=== PATIENT | male | born 1935 ===

== ENCOUNTER 2017-03-22 11:50 | Inpatient (IN) | payer OTHER, MEDICARE ==
[~2017-03-22] VITALS: Ht 180.3 cm; Wt 74.8 kg
--- NOTE | 2017-03-22 11:51 | NUR ---
UNABLE TO OBTAIN RECTAL TEMP.. RECTAL THEREMOMETER WOULD NOT GENERAL OFFICE ASSISTANT TEMP. TYMPANIC TEMP OF 86.3
--- NOTE | 2017-03-22 12:10 | ED AMS/SEIZURE/WEAK/DIZZY ---
History of Present Illness General Chief Complaint: Altered Mental Status Stated Complaint: BIBA AMS Vital Signs & Intake/Output Vital Signs & Intake/Output Vital Signs Date Time Temp Pulse Resp B/P B/P Pulse O2 O2 Flow FiO2 Mean Ox Delivery Rate 03/22 1151 53 18 141/67 96 Allergies Coded Allergies: NO KNOWN ALLERGIES (06/07/12) (FRAN PALACIOS MD) Past History Medical History History of MRSA: No History of VRE: No History of CDIFF: No Psychosocial History Who do you live with Patient/Self Services at Home Nursing What is your primary language Citizen Of [place] (FRAN PALACIOS MD) Progress Plan of Care: Orders Procedure Date/time Status EKG 03/22 1151 Active Departure Departure Condition: Stable Referrals: CHECO HAYS MD (PCP/Family) Departure Forms: Customer Survey General Discharge Information (FRAN PALACIOS MD)
--- NOTE | 2017-03-22 12:18 | NUR ---
81 YEAR OLD MALE BIBA FROM [facility] WITH REPORT OF AMS. PT ARRIVES TO ED ALERT, ORIENTED TO PERSON. PT FEELS COOL TO TOUCH, UNABLE TO OBTAIN RECTAL TEMP AT TWO DIFFERENT ATTEMPTS. TEMPORAL TEMPERATURE READ 86.2 DR. EVANGELISTA TO BEDSIDE FOR EVAL. PT PLACED ON CM NOTED TO SINUS MARTITA IN THE 50'S WITH EPISODES OF HEART RATE DROPPING IN THE 30'S AND 40'S UNSUSTAINED. EKG COMPLETED, PT PLACED ON BEAR HUGGER, AND IV ESTABLISHED AT THIS TIME. NURSING WILL CONTINUE TO MONITOR.
--- NOTE | 2017-03-22 12:18 | ED GENERAL ADULT ---
History of Present Illness General Chief Complaint: Altered Mental Status Stated Complaint: BIBA AMS Source: EMS, W10 Exam Limitations: clinical condition, confusion, dementia, physical impairment Vital Signs & Intake/Output Vital Signs & Intake/Output Vital Signs Date Time Temp Pulse Resp B/P B/P Pulse O2 O2 Flow FiO2 Mean Ox Delivery Rate 03/228 95.0 81 18 95/51 95 Room Air Room Air 03/22 2018 94.1 71 18 92/53 96 Room Air Room Air / 1910 93.0 65 18 81/53 95 Room Air Room Air /08 1834 92.3 62 18 83/51 96 Room Air Room Air /08 1801 91.3 61 18 83/54 95 Room Air Room Air /08 1721 91.2 61 18 78/50 95 Room Air Room Air /08 1601 90.3 55 18 98/55 96 Room Air Room Air /08 1539 90.1 47 18 78/49 94 Room Air /08 1436 89.7 48 18 102/64 96 Room Air Room Air /08 1341 87.8 52 20 115/71 98 Room Air 06/08 1151 86.3 53 18 141/67 96 Room Air Allergies Coded Allergies: NO KNOWN ALLERGIES (03/22/17) Reconcile Medications Acetaminophen (Acephen) 650 MG SUPP.RECT 1 SUPP VA Q4H PRN PAIN/TEMP>/100 ( Reported) Acetaminophen 325 MG TABLET 2 TAB PO Q4H PRN PAIN/TEMP>/100 (Reported) Ascorbate Calcium (Vitamin C) 500 MG TABLET 1 TAB PO BID SUPPLEMENT (Reported ) Bisacodyl 10 MG SUPP.RECT 1 SUP RC PRN CONSTIPATION (Reported) Calcium Carbonate (Calcium) 500 MG CALCIUM (1,250 MG) TAB.CHEW 1 TAB PO BID GI (Reported) Carbidopa/Levodopa (Sinemet 25-100 MG Tablet) 25 MG-100 MG TABLET 2 TAB PO TID UNKNOWN (Reported) Chlorhexidine Gluconate (Periogard) 0.12 % MOUTHWASH 15 ML PO BID TEETH & GUMS (Reported) Cranberry Fruit Concentrate (Azo Cranberry) 250 MG TAB.CHEW 2 TAB PO DAILY SUPPLEMENT (Reported) Divalproex Sodium (Depakote) 125 MG TABLET.DR 500 MG PO BID UNKNOWN (Reported ) Divalproex Sodium (Depakote) 125 MG TABLET.DR 625 MG PO 1300 UNKNOWN ( Reported) Docusate Sodium (DOK) 100 MG TABLET 2 TAB PO DAILY GI (Reported) Ergocalciferol (Vitamin D2) (Vitamin D2) 50,000 UNIT CAPSULE 1 CAP PO Q30D SUPPLEMENT (Reported) Finasteride 5 MG TABLET 1 TAB PO 1700 BPH (Reported) Folic Acid 0.8 MG TABLET 1 TAB PO DAILY SUPPLEMENT (Reported) Furosemide (Lasix) 20 MG TABLET 1 TAB PO 4XW DIURETIC (Reported) Furosemide (Lasix) 40 MG TABLET 1 TAB PO Sunday DIURETIC (Reported ) Guaifenesin 100 MG/5 ML LIQUID 10 ML PO Q6H PRN COUGH (Reported) Lactose-Reduced Food (Nutritional Supplement) 237 ML LIQUID 120 ML PO BID SUPPLEMENT (Reported) Levothyroxine Sodium 125 MCG TABLET 1 TAB PO DAILY THYROID (Reported) Lubiprostone (Amitiza) 24 MCG CAPSULE 1 CAP PO BID GI (Reported) Magnesium Hydroxide (Milk Of Magnesia) 400 MG/5 ML ORAL.SUSP 30 ML PO DAILY PRN CONSTIPATION (Reported) Midodrine HCl 5 MG TABLET 1 TAB PO BID UNKNOWN (Reported) Midodrine HCl 2.5 MG TABLET 1 TAB PO BID UNKNOWN (Reported) Multivitamin,Ther and Minerals (Multivitamins With Minerals Hp) 1 EACH CAPSULE 1 CAP PO DAILY SUPPLEMENT (Reported) Na Phos,M-B/Na Phos,Di-Ba (Fleet Enema) 19 GRAM-7 GRAM/118 ML ENEMA 1 E RC DAILY PRN CONSTIPATION (Reported) Omeprazole 20 MG CAPSULE.DR 1 CAP PO DAILY GI (Reported) Polyethylene Glycol 3350 (Miralax) 17 GRAM POWD.PACK 1 PAC PO 1700 GI ( Reported) dissolve in water [POWER CEREAL] 1 UNIT PO QAM SUPPLEMENT (Reported) Protein Supplement (Promod) 946 ML LIQUID 30 ML PO DAILY SUPPLEMENT (Reported ) Quetiapine Fumarate 100 MG TABLET 1 TAB PO QAM UNKNOWN (Reported) Quetiapine Fumarate 25 MG TABLET 1 TAB PO QAM UNKNOWN (Reported) Quetiapine Fumarate 25 MG TABLET 1 TAB PO 1400 UNKNOWN (Reported) Quetiapine Fumarate (Seroquel) 100 MG TABLET 1 TAB PO QHS UNKNOWN (Reported) Saliva Stimulant Agents Comb.3 (Biotene Moisturizing Mouth) 44.3 ML SPRAY 2 SPRAY PO BID DRY MOUTH (Reported) Sennosides/Docusate Sodium (Senna S Tablet) 8.6 MG-50 MG TABLET 1 TAB PO 1700 GI (Reported) Simvastatin (Zocor*) 20 MG TABLET 1 TAB PO QHS CHOLESTEROL (Reported) Spironolactone 25 MG TABLET 12.5 MG PO DAILY DIURETIC (Reported) Tamsulosin HCl (Flomax) 0.4 MG CAP.ER.24H 1 CAP PO DAILY (Reported) Trazodone HCl 150 MG TABLET 0.5 TAB PO QHS UNKNOWN (Reported) Triage Nurses Notes Reviewed? yes Onset: Abrupt Duration: unknown duration Timing: unknown HPI: 03/22/17 12:37 81-year-old man [facility] from the prison for altered mental status and hypothermia. The patient has a history of dementia and Parkinson's disease. He is currently DNR/DNI and do not hospitalize according to the prison paperwork. I did confirm this with the prison staff. The medical housekeeper at the facility requested the patient be evaluated. The onset of the symptoms were abrupt, the duration is unclear, the severity is significant as his symptoms required him to come to the emergency department for care. Past History Medical History Any Pertinent Medical History? see below for history Neurological: Alzheimer's disease, Parkinson's disease, seizure History of MRSA: No History of VRE: No History of CDIFF: No Surgical History Surgical History: non-contributory Psychosocial History Who do you live with Patient/Self Services at Home Nursing What is your primary language [place] Family History Hx Contributory? No Review of Systems Review of Systems Constitutional: Denies: fever. EENTM: Reports: no symptoms. Respiratory: Denies: short of breath. Cardiovascular: Denies: chest pain. GI: Denies: abdominal pain. Genitourinary: Reports: no symptoms. Musculoskeletal: Reports: no symptoms. Skin: Denies: rash. Neurological/Psychological: Reports: confusion. Hematologic/Endocrine: Denies: bruising, bleeding. Physical Exam Physical Exam General Appearance: awake, severe distress Head: atraumatic Eyes: Bilateral: PERRL. Ears, Nose, Throat: dry mucous membranes Neck: normal inspection, supple Respiratory: normal breath sounds, chest non-tender, no respiratory distress Cardiovascular: regular rate/rhythm Peripheral Pulses: 2+ radial (R), 2+ radial (L) Gastrointestinal: non-tender Back: decreased range of motion Extremities: pedal edema Neurologic/Psych: no motor/sensory deficits (confused, nonfocal) Skin: pallor Core Measures ACS in differential dx? No CVA/TIA Diagnosis: No Severe Sepsis Present: No Septic Shock Present: No Progress Differential Diagnoses I considered the following diagnoses in my evaluation of the patient: [Sepsis, adrenal insufficiency, hypothyroidism, adverse drug reaction, anemia, electrolyte derangement] Plan of Care: Orders Procedure Date/time Status Patient Data 03/22 2001 Active Add-on Test (ER Only) 03/[address] in observation 03/22 195 Active LACTIC ACID 03/22 1525 Complete THYROID STIMULATING HORMONE 03/22 1230 Active TROPONIN LEVEL 03/22 1230 Active THYROXINE 03/22 1230 Active LACTIC ACID 03/22 1230 Active FREE T4 03/22 1230 Active Germain, Insertion/Removal/Asses 03/22 1225 Active CULTURE,URINE 03/22 1225 Active BLOOD CULTURE 03/22 1225 Active URINALYSIS 03/22 1225 Complete ED- NURSING MISC 03/22 1220 Active COMPREHENSIVE METABOLIC PANEL 03/22 1220 Active CBC WITHOUT DIFFERENTIAL 03/22 1220 Complete EKG 03/22 1151 Active Current Medications Sig/Sofie Start time Last Medication Dose Stop Time Status Admin Finasteride 5 MG 1700 03/23 1700 UNVr (Proscar) Ceftazidime 2,000 MG IQ8 03/23 0400 UNVr (Fortaz) Chlorhexidine 15 ML BID 03/22 2200 UNVr Gluconate (Peridex 0.12% Oral Rinse) Divalproex Sodium 500 MG BID 03/22 2200 UNVr (Depakote ER) Divalproex Sodium 625 MG .[1300 DAILY] 03/22 2115 UNVr (Depakote) Ceftazidime 1,000 MG ONCE ONE 03/22 2100 UNVr 03/22 (Fortaz) 03/22 2101 2106 Vancomycin HCl 1,000 MG ONCE ONE 03/22 2030 AC 03/22 Sodium Chloride 250 ML 03/22 (Normal Saline 0.9%) Laboratory Tests 03/22/17 1530: Lactic Acid 1.4 03/22/17 1406: Urine Color YEL, Urine Clarity CLEAR, Urine pH 6.0, Ur Specific [place] 1.015, Urine Protein NEG, Urine Ketones NEG, Urine Nitrite NEG, Urine Bilirubin NEG, Urine Urobilinogen 0.2, Ur Leukocyte Esterase NEG, Ur Microscopic EXAM NOT REQUIRED, Urine Hemoglobin NEG, Urine Glucose NEG 03/22/17 1230: Anion Gap 11, Estimated GFR > 60, BUN/Creatinine Ratio 47.8 H, Glucose 88, Lactic Acid 2.7 H, Calcium 9.5, Total Bilirubin 0.4, AST 28, ALT 11 L, Alkaline Phosphatase 74, Troponin I 0.04, Total Protein 6.6, Albumin 3.2 L, Globulin 3.4, Albumin/Globulin Ratio 0.9 L, TSH 8.090 H, Free T4 1.36, Thyroxine (T4) Pending, CBC w Diff NO MAN DIFF REQ, RBC 3.96 L, MCV 95.3 H, MCH 31.4 H, RDW 17.5 H, MPV 7.4, Gran % 46.5, Lymphocytes % 42.9, Monocytes % 8.4, Eosinophils % 1.6, Basophils % 0.6, Absolute Granulocytes 1.3 L, Absolute Lymphocytes 1.2, Absolute Monocytes 0.2, Absolute Eosinophils 0, Absolute Basophils 0, PUBS MCHC 33.0 03/22/17 1225: Lactic Acid Cancelled, Troponin I Cancelled, TSH Cancelled, Free T4 Cancelled Microbiology 03/22 1530 BLOOD: Blood Culture - RECD 03/22 1406 URINE ROUT: Urine Culture - RECD 03/22 1230 BLOOD: Blood Culture - RECD CXR Impression: lower lobe opacifications rule out infiltrate Initial ED EKG: right bundle-branch block, bradycardia Prior EKG: unchanged Departure Departure Disposition: STILL A PATIENT Condition: Stable Clinical Impression Primary Impression: Hypothermia Secondary Impressions: Hypotension, Sepsis Referrals: CHECO HAYS MD (PCP/Family) Departure Forms: Customer Survey General Discharge Information Comments 03/22/17 7:34 PM The patient hasn't established DNR DNI and do not hospitalize order from the prison. I spoke at length with the patient's family and power of associate attorney ,his brother. He would like the patient's wishes honored for no aggressive measures. He did for was placed in observation in the ICU, his care will include IV fluids, and IV antibiotics. No intubation no CPR. No vasopressors. No invasive IV lines. Observation Note Spoke With: FLORENCIO PAYNE,[facility] Physician Advisor Notified: MYLENE PAYNE,[facility] Patient In: Non-ED OBS Care Area Rationale for Observation: My rational for observation is as follows [he needs IV fluids, IV antibiotics, external rewarming. We will see if he responds to these therapies; if he does not respond, the family would prefer hospice therapy]. Critical Care Note Critical Care Note Critical Care Time: 30-74 min
[2017-03-22 12:45] LABS: ABSOLUTE BASOPHIL COUNT 0 /CUMM (0.0-0.2); ABSOLUTE EOSINOPHIL COUNT 0 /CUMM (0.0-0.7); ABSOLUTE GRANULOCYTE CT 1.3 /CUMM (1.4-6.5); ABSOLUTE LYMPH COUNT 1.2 /CUMM (1.2-3.4); ABSOLUTE MONOCYTE COUNT 0.2 /CUMM (0.10-0.60); BASOPHIL % 0.6 % (0.0-2.0); EOSINOPHIL % 1.6 % (0-5); GRANULOCYTE % 46.5 % (42.2-75.2); HEMATOCRIT 37.7 % (42-52); MEAN CORPUSCULAR HGB 31.4 PG (27.0-31.0); MEAN CORPUSCULAR VOLUME 95.3 FL (80.0-94.0); MEAN PLATELET VOLUME 7.4 FL (7.4-10.4); PLATELET COUNT 171 /CUMM (130-400); RBC DISTRIBUTION WIDTH 17.5 % (11.5-14.5); RED BLOOD CELL CT 3.96 /CUMM (4.70-6.10); WHITE BLOOD CELL COUNT 2.8 /CUMM (4.8-10.8)
--- NOTE | 2017-03-22 12:56 | NUR ---
PT TO CAT SCAN AT THIS TIME.
--- NOTE | 2017-03-22 13:19 | RADIOLOGY REPORT ---
EXAMINATION: XR PORTABLE CHEST CLINICAL INFORMATION: Altered mental status. Assess for pneumonia. COMPARISON: Chest radiography 09/09/2013. TECHNIQUE: Portable frontal view of the chest was obtained. FINDINGS: There is bibasilar opacification. No pulmonary edema, large pleural effusion, or pneumothorax. No mediastinal widening. No acute osseous abnormalities. IMPRESSION: Bibasilar opacification, consider atelectasis, aspiration, or pneumonia.
--- NOTE | 2017-03-22 13:24 | NUR ---
CRITICAL TEST RESULTS [id number] MARY ANNE FLYNN 81 Priti TESTS AND RESULTS: LACTIC ACID 2.7 Results received and read back by: JENNA BORGES Results received date and time: 03/22/17 1324 The following provider was notified of the results, and read the results back: DR EVANGELISTA Notified date and time: 03/22/17 at 1324
--- NOTE | 2017-03-22 13:24 | CT SCAN REPORT ---
EXAMINATION: CT HEAD WITHOUT CONTRAST CLINICAL INFORMATION: Altered mental status. COMPARISON: CT head 06/25/2013. TECHNIQUE: Contiguous axial imaging was performed from the skull base to vertex without intravenous administration of contrast. DLP: 616.71 mGy-cm FINDINGS: There is no acute intracranial hemorrhage or abnormal extra-axial collection. No intracranial mass effect or midline shift. Lateral and third ventricles are proportionate to the subarachnoid spaces and there is no hydrocephalus. 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 Bansal-white matter differentiation is otherwise grossly preserved and there is no evidence of acute territorial infarct. The calvarium and skull base are intact. Mastoid air cells and middle ear cavities are well aerated. Visualized paranasal sinuses are well-aerated. 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 There is global parenchymal volume loss. No evidence of acute territorial infarct or hemorrhage.
--- NOTE | 2017-03-22 15:37 | NUR ---
SECOND SET OF B/C AND REPEAT LACTIC SENT AT THIS TIME.
--- NOTE | 2017-03-22 16:00 | NUR ---
NS BOLUS #[address] EVANGELISTA FOR HYPOTENSION. PT CONTINUES TO REMAIN ALTERED MUMBLING THE WHAT SOUNDS TO BE THE SAME UNINTELLIGABLE SENTENCE. PT CONTINUES ON BEAR HUGGER WITH IMPROVEMENT. BARGER CATHETER DRAINING CLEAR YELOOW URINE.
[2017-03-22] MEDS ORDERED: [UNRECOGNIZED DRUG - OTHER] PO (17:29)
[2017-03-22] MEDS ORDERED: NUTRITIONAL SU237 ML PO (17:30)
[2017-03-22] MEDS ORDERED: OMEPRAZOLE20 M2 PO (17:30)
[2017-03-22] MEDS ORDERED: LEVOTHYROXINE125 MCG PO (17:31)
[2017-03-22] MEDS ORDERED: LASIX40 M1 PO (17:32)
[2017-03-22] MEDS ORDERED: LASIX20 M1 PO (17:32)
[2017-03-22] MEDS ORDERED: DOK100 M3 PO (17:44)
[2017-03-22] MEDS ORDERED: SINEMET 25-1001 EACH PO (17:44)
[2017-03-22] MEDS ORDERED: AZO CRANBERRY250 MG PO (17:45)
[2017-03-22] MEDS ORDERED: MULTIVITAMINS1 EAC3 PO (17:45)
[2017-03-22] MEDS ORDERED: SPIRONOLACTONE25 M1 PO (17:46)
[2017-03-22] MEDS ORDERED: VITAMIN D250000 UNIT PO (17:46)
[2017-03-22] MEDS ORDERED: FOLIC ACID0.8 M2 PO (17:46)
[2017-03-22] MEDS ORDERED: QUETIAPINE FUMA25 M1 PO ×2 (17:48→18:06)
[2017-03-22] MEDS ORDERED: QUETIAPINE FUM100 M1 PO (17:48)
[2017-03-22] MEDS ORDERED: PERIOGARD473 ML PO (17:49)
[2017-03-22] MEDS ORDERED: [UNRECOGNIZED DRUG - OTHER] PO (17:49)
[2017-03-22] MEDS ORDERED: MIDODRINE HCL5 M1 PO (17:50)
[2017-03-22] MEDS ORDERED: AMITIZA24 MC1 PO (17:51)
[2017-03-22] MEDS ORDERED: CALCIUM500 M2 PO (17:51)
[2017-03-22] MEDS ORDERED: MIDODRINE HCL2.5 M1 PO (17:52)
--- NOTE | 2017-03-22 18:00 | NUR ---
THIRD NS BOLUS FINISHED AT THIS TIME WITH LITTE IMPROVEMENT WITH HYPOTENSION. PT POA AND BROTHER IS AT THE BEDSIDE WITH FAMILY. DR. EVANGELISTA TO BEDSIDE TO DISCUSS RESULTS AND POC WITH FAMILY. FAMILY REQUESTING ONLY NONINVASIVE MEASURES OF TREATMENT AT THIS TIME. CASE MANAGEMENT INVOLVED WITH ADMISSION.
[2017-03-22] MEDS ORDERED: DEPAKOTE125 M1 PO ×2 (18:06)
[2017-03-22] MEDS ORDERED: FLOMAX0.4 M1 PO (18:07)
[2017-03-22] MEDS ORDERED: MIRALAX17 G1 PO (18:10)
[2017-03-22] MEDS ORDERED: SENNA S TABLET1 EACH PO (18:10)
[2017-03-22] MEDS ORDERED: FINASTERIDE5 M1 PO (18:11)
[2017-03-22] MEDS ORDERED: SEROQUEL100 M1 PO (18:12)
[2017-03-22] MEDS ORDERED: TRAZODONE HCL150 M1 PO (18:12)
[2017-03-22] MEDS ORDERED: ZOCOR20 M1 PO (18:12)
[2017-03-22] MEDS ORDERED: VITAMIN C500 M6 PO (18:14)
[2017-03-22] MEDS ORDERED: PROMOD946 ML PO (18:14)
[2017-03-22] MEDS ORDERED: ACEPHEN650 M1 PR (18:15)
[2017-03-22] MEDS ORDERED: ACETAMINOPHEN325 M2 PO (18:44)
[2017-03-22] MEDS ORDERED: FLEET ENEMA133 ML RC (18:45)
[2017-03-22] MEDS ORDERED: MILK OF MA400 MG/52 PO (18:45)
[2017-03-22] MEDS ORDERED: BISACODYL10 M1 RC (18:45)
[2017-03-22] MEDS ORDERED: GUAIFENESI100 MG/5 M PO (18:46)
--- NOTE | 2017-03-22 20:15 | NUR ---
PT MEDICATED PER EMAR. PT RESTING ON STRETCHER WITH EYES CLOSED AT THIS TIME. PT CONTINUES ON CM AND BEAR DENITA CARRERA DRAINING CLEAR, YELLOW URINE.
--- NOTE | 2017-03-22 22:10 | NUR ---
REPORT GIVEN TO CIELO BENAVIDES. ICU WILL CALL WHEN BED IS CLEAN.
--- NOTE | 2017-03-22 22:15 | NUR ---
REPEAT EKG AND TROP DONE AT THIS TIME.
--- NOTE | 2017-03-22 22:27 | History & Physical ---
RICHARDMADI DON 03/22/17 2224: General Information and HPI MD Statement: I have seen and personally examined MARY ANNE FLYNN and documented this H&P. The patient is a 81 year old M who presented with a patient stated chief complaint of [segment of the status, hyperlipidemia, hypertension]. Source of Information: family, old records, [facility] Exam Limitations: unable to give history, confusion History of Present Illness: 81-year-old gentleman with past medical history of Parkinson's, hypothyroidism, urinary and bowel incontinence, bipolar, psychosis, seizure disorder is brought to the hospital from [facility] care facility [facility] chief complaint of hypothermia and hypotension which occurred since morning. patient is unable to give history and the information was obtained from , documents from rehab and patient's brother. According to the nurse in the rehabilitation center patient baseline is alert but confused and he was not having any complaints of chest pain, abdominal pain yesterday 3-11 pm. However according to the records from [facility] patient developed mimicking, hypotension, severe hypothermia with temperature of 88. PCP was called and despite being "do not hospitalize " and was brought to the hospital. A call was made to patient's brother was a power of reproduction order processor, he reported that patient was getting better during the stay in the hospital today. Vital signs on admission was notable for severe hypokalemia and hypotension which was improved with IV hydration and chelsy hugger. Labs were notable for WBC 2.8, hemoglobin 12.6, potassium 3.3, chloride 90, HCO3 27, BUN 43, acid 2.7 which is resolved to 1.4, KIYA 11, TSH 8.090 CXR IMPRESSION: Bibasilar opacification, consider atelectasis, aspiration, or pneumonia. 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 There is global parenchymal volume loss. No evidence of acute territorial infarct or hemorrhage. EKG was notable for RBBB, bradycardia 52, QTC 536, possible first-degree heart block Allergies/Medications Allergies: Coded Allergies: NO KNOWN ALLERGIES (03/22/17) Home Med list Acetaminophen (Acephen) 650 MG SUPP.RECT 1 SUPP WA Q4H PRN PAIN/TEMP>/100 ( Reported) Acetaminophen 325 MG TABLET 2 TAB PO Q4H PRN PAIN/TEMP>/100 (Reported) Ascorbate Calcium (Vitamin C) 500 MG TABLET 1 TAB PO BID SUPPLEMENT (Reported ) Bisacodyl 10 MG SUPP.RECT 1 SUP RC PRN CONSTIPATION (Reported) Calcium Carbonate (Calcium) 500 MG CALCIUM (1,250 MG) TAB.CHEW 1 TAB PO BID GI (Reported) Carbidopa/Levodopa (Sinemet 25-100 MG Tablet) 25 MG-100 MG TABLET 2 TAB PO TID UNKNOWN (Reported) Chlorhexidine Gluconate (Periogard) 0.12 % MOUTHWASH 15 ML PO BID TEETH & GUMS (Reported) Cranberry Fruit Concentrate (Azo Cranberry) 250 MG TAB.CHEW 2 TAB PO DAILY SUPPLEMENT (Reported) Divalproex Sodium (Depakote) 125 MG TABLET.DR 500 MG PO BID UNKNOWN (Reported ) Divalproex Sodium (Depakote) 125 MG TABLET.DR 625 MG PO 1300 UNKNOWN ( Reported) Docusate Sodium (DOK) 100 MG TABLET 2 TAB PO DAILY GI (Reported) Ergocalciferol (Vitamin D2) (Vitamin D2) 50,000 UNIT CAPSULE 1 CAP PO Q30D SUPPLEMENT (Reported) Finasteride 5 MG TABLET 1 TAB PO 1700 BPH (Reported) Folic Acid 0.8 MG TABLET 1 TAB PO DAILY SUPPLEMENT (Reported) Furosemide (Lasix) 20 MG TABLET 1 TAB PO 4XW DIURETIC (Reported) Furosemide (Lasix) 40 MG TABLET 1 TAB PO Sunday DIURETIC (Reported ) Guaifenesin 100 MG/5 ML LIQUID 10 ML PO Q6H PRN COUGH (Reported) Lactose-Reduced Food (Nutritional Supplement) 237 ML LIQUID 120 ML PO BID SUPPLEMENT (Reported) Levothyroxine Sodium 125 MCG TABLET 1 TAB PO DAILY THYROID (Reported) Lubiprostone (Amitiza) 24 MCG CAPSULE 1 CAP PO BID GI (Reported) Magnesium Hydroxide (Milk Of Magnesia) 400 MG/5 ML ORAL.SUSP 30 ML PO DAILY PRN CONSTIPATION (Reported) Midodrine HCl 5 MG TABLET 1 TAB PO BID UNKNOWN (Reported) Midodrine HCl 2.5 MG TABLET 1 TAB PO BID UNKNOWN (Reported) Multivitamin,Ther and Minerals (Multivitamins With Minerals Hp) 1 EACH CAPSULE 1 CAP PO DAILY SUPPLEMENT (Reported) Na Phos,M-B/Na Phos,Di-Ba (Fleet Enema) 19 GRAM-7 GRAM/118 ML ENEMA 1 E RC DAILY PRN CONSTIPATION (Reported) Omeprazole 20 MG CAPSULE.DR 1 CAP PO DAILY GI (Reported) Polyethylene Glycol 3350 (Miralax) 17 GRAM POWD.PACK 1 PAC PO 1700 GI ( Reported) dissolve in water [POWER CEREAL] 1 UNIT PO QAM SUPPLEMENT (Reported) Protein Supplement (Promod) 946 ML LIQUID 30 ML PO DAILY SUPPLEMENT (Reported ) Quetiapine Fumarate 100 MG TABLET 1 TAB PO QAM UNKNOWN (Reported) Quetiapine Fumarate 25 MG TABLET 1 TAB PO QAM UNKNOWN (Reported) Quetiapine Fumarate 25 MG TABLET 1 TAB PO 1400 UNKNOWN (Reported) Quetiapine Fumarate (Seroquel) 100 MG TABLET 1 TAB PO QHS UNKNOWN (Reported) Saliva Stimulant Agents Comb.3 (Biotene Moisturizing Mouth) 44.3 ML SPRAY 2 SPRAY PO BID DRY MOUTH (Reported) Sennosides/Docusate Sodium (Senna S Tablet) 8.6 MG-50 MG TABLET 1 TAB PO 1700 GI (Reported) Simvastatin (Zocor*) 20 MG TABLET 1 TAB PO QHS CHOLESTEROL (Reported) Spironolactone 25 MG TABLET 12.5 MG PO DAILY DIURETIC (Reported) Tamsulosin HCl (Flomax) 0.4 MG CAP.ER.24H 1 CAP PO DAILY (Reported) Trazodone HCl 150 MG TABLET 0.5 TAB PO QHS UNKNOWN (Reported) Past History Travel History Traveled to [place] past 21 day No Medical History Neurological: Alzheimer's disease, Parkinson's disease, seizure Psychiatric: anxiety, bipolar disease, psychosis BARBER OR BEAUTY SHOP MANAGER/Reproductive: BPH History of MRSA: No History of VRE: No History of CDIFF: No Surgical History Surgical History: non-contributory Past Family/Social History Psychosocial History Services at Home: Nursing Review of Systems Review of Systems Constitutional: Reports: see HPI. Exam & Diagnostic Data Last 24 Hrs of Vital Signs/I&O Vital Signs Date Time Temp Pulse Resp B/P B/P Pulse O2 O2 Flow FiO2 Mean Ox Delivery Rate 03/22 2155 95.4 79 18 110/54 96 Room Air Room Air 03/22 2108 95.0 81 18 95/51 95 Room Air Room Air 03/22 2018 94.1 71 18 92/53 96 Room Air Room Air 03/220 93.0 65 18 81/53 95 Room Air Room Air 06/08 1834 92.3 62 18 83/51 96 Room Air Room Air 03/22 1801 91.3 61 18 83/54 95 Room Air Room Air 03/22 1721 91.2 61 18 78/50 95 Room Air Room Air 03/22 1601 90.3 55 18 98/55 96 Room Air Room Air 03/22 1539 90.1 47 18 78/49 94 Room Air 03/22 1436 89.7 48 18 102/64 96 Room Air Room Air 03/22 1341 87.8 52 20 115/71 98 Room Air 03/22 1151 86.3 53 18 141/67 96 Room Air Intake & Output 03/22 1600 03/22 0800 06 0000 Intake Total Output Total Balance Patient 165 lb Weight Physical Exam General Appearance Alert, No Acute Distress, disoriented Skin some rashesh on the legs, pressure ulcer on the cocyyx, skin tears right elbow Skin Temp/Moisture Exam: Hot/Dry Cardiovascular Regular Rate, Normal S1, Normal S2 Lungs bilateral crackles limited exam Abdomen Normal Bowel Sounds, Soft, No Tenderness Neurological does not follow commands Extremities No Clubbing, No Cyanosis, No Edema Sepsis Peripheral Pulse Location: Dorsalis Pedis Sepsis Peripheral Pulse Exam: Normal Sepsis Cap Refill Exam: <2 Sec Assessment/Plan Assessment: 81-year-old gentleman with past medical history of Parkinson's, hypothyroidism, CHF?, urinary and bowel incontinence, bipolar, psychosis, seizure disorder is brought to the hospital from extended care facility [facility] rehab chief complaint of hypothermia and hypotension which occurred since morning. patient is unable to give history and the information was obtained from , documents from rehab and patient's brother. A call was made to patient's brother was a power of reproduction order processor, he reported that patient was getting better during the stay in the hospital today. Vital signs on admission was notable for severe hypokalemia and hypotension which was improved with IV hydration and chelsy hugger. Labs were notable for WBC 2.8, hemoglobin 12.6, potassium 3.3, chloride 90, HCO3 27, BUN 43, acid 2.7 which is resolved to 1.4, KIYA 11, TSH 8.090 CXR IMPRESSION: Bibasilar opacification, consider atelectasis, aspiration, or pneumonia. 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 There is global parenchymal volume loss. No evidence of acute territorial infarct or hemorrhage. EKG was notable for RBBB, bradycardia 52, QTC 536, possible first-degree heart block Assessment and plan 1. Sepsis due to possible hospital-acquired pneumonia with low temperature -Start the patient on vancomycin and ceftazidime -Check a sputum culture, blood culture 2 -IVydration with normal saline 100 mL per hour -Hold all oral medication for now and evaluate the morning -continue chelsy murdock 2. History of psychosis, seizure disorder, bipolar -Hold on oral medications and just continue IV valproic acid -swallow eval the morning and NPO for now 3. Hypothyroidism -IV levothyroxine 62.5 MCG daily 4.CHF? GERD -Hold Lasix and spironolactone for now and give IV PPI DNR/ DNI now, NPO, DVT prophylaxis is ALP and SQ heparin, Tylenol IV for pain As Ranked By This Provider Problem List: 1. Dehydration 2. Hypothyroidism 3. Hypothermia Core Measures/Miscellaneous Acute Coronary Syndrome ACS Diagnosis: No Cerebrovascular Accident CVA/TIA Diagnosis: No Congestive Heart Failure CHF Diagnosis: No VTE (View Protocol) VTE Risk Factors: Age > 40 No [facility] VTE prophylaxis d/t: No contraindications No VTE Pharm Prophylaxis d/t: No contraindications VTE Diagnosis: No VTE Type: NONE VTE Confirmed by (Test): NONE Sepsis (View Protocol) Severe Sepsis Present: Yes BC x2: Yes Lactic Acid x2: Yes IV ABX Broad Spectrum: Yes Septic Shock Septic Shock Present: No Miscellaneous Documentation Attending Case Discussed With: [facility]SS[facility] Patient sees these Specialists N/A Level of Patient Care: Critical Care (CRI) [facility] 03/23/17 0501: Attending MD Review Statement Attending Statement Attending MD Statement: examined this patient, discuss w/resident/PA/MAST MAKER, agreed w/resident/PA/MAST MAKER, discussed with family Attending Assessment/Plan: 81 yo M with h/o Parkinson's disease, seizure disorder, anxiety, bipolar d/o, hypothyroidism, is [facility] in from [facility] for altered mental status, hypotension and hypothermia (Temp 88.1). Please note, the patient has a DNR/I and do not hospitalize documentation per AL. This was confirmed by Dr. Keyes with AL staff. However, patient's PCP asked that patient be transferred to [facility] for evaluation for any reversible cause. Patient at baseline in confused and I could not establish a history from the patient. Power of reproduction order processor is patient's brother (Martell). According to AL staff, patient had no complaints today. I spoke with patient's daughters at bedside, however they have not been in contact for many years as patient's brother is the POA. Vitals: Temp 86.3 --> 90.3 --> 93 after bear hugger, BP 115/71 --> 78/49 --> 81/ 53, sats 95% RA. Exam: awake, alert, confused, speech garbled. Dry mucous membranes, no lymphadenopathy. Chest bibasilar crackles, Heart S1S2 regular. Abd soft, NT. LE: trace edema. Pressure ulcer to coccyx+. Skin tear to right elbow+. Labs: WBC 2.8, H/H 12.4/37.7, macrocytosis, Na 139, K 3.3, bicarb 37, BUN 43, lactic acid 2.7, trop neg, TSH 8.090, free T4 1.36 (normal), UA clear. CXR: bibasilar opacification ?atelectasis or pneumonia. Head CT: old cerebellar infarct, no acute changes. EKG: initially was accelerated junctional rhythm (HR 52) --> then SR, RBBB. 1. Sepsis in the setting of possible HCAP, no evidence of UTI or SSTI. ICU 23 Obs, panculture, IV fluids, IV ceftaz and Vanco, bear hugger until body temperature improves. NPO, swallow eval in AM Please note, patient is on a pureed thin liquid diet at the facility. Check AM cortisol level. Hold lasix, spirinolactone. 2. The constellation of symptoms could also be attributed to hypothyroidism. Patient is on levothyroxine 125 mcg, his TSH is elevated and his free T4 is normal. Will continue current dose of levothyroxine (convert to IV) and recheck TFTs in AM. If persistently elevated, consider increasing synthroid dose. 3. h/o seizure. Ct. Depakote. We had a detailed discussion with patient's POA, patient has advanced directive of DNR/I, no aggressive mearsures including pressors or central line or feeding tubes. We will observe him in the ICU overnight, treat him conservatively. If he deteriorates, then plan is to keep in comfortable and eventual Hospice eval. DVT ppx Hep SC. DNR/I. TTS > 45 mins
--- NOTE | 2017-03-22 22:36 | NUR ---
TRANSPORT BOOKED, BED IS READY. DR. LATIF AT BEDSIDE FOR EVAL AT THIS TIME.
--- NOTE | 2017-03-22 23:30 | NUR ---
81 YEAR OLD PATIENT ADMITTED TO 107 VIA STRETCHER FROM ER. PATIENT ALERT,FOLLOWS COMMANDS,SPEECH OCCASIONALLY CLEAR,FREQUENTLY GARBLED. MONITOR SINUS RHYTHM AT RATE OF 84.BP 110/64. IVF AT RATE OF 100 ML/HR.TONIE MITRAER RESUMED FOR RECTAL TEMP OF 95.7.
[2017-03-23] VITALS: BP 100/64
--- NOTE | 2017-03-23 01:39 | NUR ---
TONIE CARRERA DISCONTINUED FOR RECTAL TEMP OF 96.4 RECTAL.
[2017-03-23 02:58] LABS: ABSOLUTE BASOPHIL COUNT 0 /CUMM (0.0-0.2); ABSOLUTE EOSINOPHIL COUNT 0 /CUMM (0.0-0.7); ABSOLUTE GRANULOCYTE CT 3.5 /CUMM (1.4-6.5); ABSOLUTE LYMPH COUNT 0.5 /CUMM (1.2-3.4); ABSOLUTE MONOCYTE COUNT 0.1 /CUMM (0.10-0.60); BASOPHIL % 0.1 % (0.0-2.0); EOSINOPHIL % 0.4 % (0-5); HEMATOCRIT 35.4 % (42-52); MEAN CORPUSCULAR HGB 31.6 PG (27.0-31.0); MEAN CORPUSCULAR HGB CONC 33.4 G/DL (33.0-37.0); MEAN CORPUSCULAR VOLUME 94.8 FL (80.0-94.0); MEAN PLATELET VOLUME 7.3 FL (7.4-10.4); PLATELET COUNT 177 /CUMM (130-400); RBC DISTRIBUTION WIDTH 17.6 % (11.5-14.5); RED BLOOD CELL CT 3.73 /CUMM (4.70-6.10); WHITE BLOOD CELL COUNT 4.1 /CUMM (4.8-10.8)
[2017-03-23 03:21] LABS: GRANULOCYTE % 85.3 % (42.2-75.2)
--- NOTE | 2017-03-23 07:40 | Cons- CRCU ---
PARTH PAYNE,[facility] 03/23/17 0740: General Information and HPI Consulting Request Date of Consult: 03/23/17 Source of Information: family, old records, W[facility] Exam Limitations: confusion Allergies/Medications Allergies: Coded Allergies: NO KNOWN ALLERGIES (03/22/17) Home Med List: Acetaminophen (Acephen) 650 MG SUPP.RECT 1 SUPP [place] Q4H PRN PAIN/TEMP>/100 ( Reported) Acetaminophen 325 MG TABLET 2 TAB PO Q4H PRN PAIN/TEMP>/100 (Reported) Ascorbate Calcium (Vitamin C) 500 MG TABLET 1 TAB PO BID SUPPLEMENT (Reported ) Bisacodyl 10 MG SUPP.RECT 1 SUP RC PRN CONSTIPATION (Reported) Calcium Carbonate (Calcium) 500 MG CALCIUM (1,250 MG) TAB.CHEW 1 TAB PO BID GI (Reported) Carbidopa/Levodopa (Sinemet 25-100 MG Tablet) 25 MG-100 MG TABLET 2 TAB PO TID UNKNOWN (Reported) Chlorhexidine Gluconate (Periogard) 0.12 % MOUTHWASH 15 ML PO BID TEETH & GUMS (Reported) Cranberry Fruit Concentrate (Azo Cranberry) 250 MG TAB.CHEW 2 TAB PO DAILY SUPPLEMENT (Reported) Divalproex Sodium (Depakote) 125 MG TABLET.DR 500 MG PO BID UNKNOWN (Reported ) Divalproex Sodium (Depakote) 125 MG TABLET.DR 625 MG PO 1300 UNKNOWN ( Reported) Docusate Sodium (DOK) 100 MG TABLET 2 TAB PO DAILY GI (Reported) Ergocalciferol (Vitamin D2) (Vitamin D2) 50,000 UNIT CAPSULE 1 CAP PO Q30D SUPPLEMENT (Reported) Finasteride 5 MG TABLET 1 TAB PO 1700 BPH (Reported) Folic Acid 0.8 MG TABLET 1 TAB PO DAILY SUPPLEMENT (Reported) Furosemide (Lasix) 20 MG TABLET 1 TAB PO 4XW DIURETIC (Reported) Furosemide (Lasix) 40 MG TABLET 1 TAB PO SUNDAY WED RENETTA DIURETIC (Reported ) Guaifenesin 100 MG/5 ML LIQUID 10 ML PO Q6H PRN COUGH (Reported) Lactose-Reduced Food (Nutritional Supplement) 237 ML LIQUID 120 ML PO BID SUPPLEMENT (Reported) Levothyroxine Sodium 125 MCG TABLET 1 TAB PO DAILY THYROID (Reported) Lubiprostone (Amitiza) 24 MCG CAPSULE 1 CAP PO BID GI (Reported) Magnesium Hydroxide (Milk Of Magnesia) 400 MG/5 ML ORAL.SUSP 30 ML PO DAILY PRN CONSTIPATION (Reported) Midodrine HCl 5 MG TABLET 1 TAB PO BID UNKNOWN (Reported) Midodrine HCl 2.5 MG TABLET 1 TAB PO BID UNKNOWN (Reported) Multivitamin,Ther and Minerals (Multivitamins With Minerals Hp) 1 EACH CAPSULE 1 CAP PO DAILY SUPPLEMENT (Reported) Na Phos,M-B/Na Phos,Di-Ba (Fleet Enema) 19 GRAM-7 GRAM/118 ML ENEMA 1 E RC DAILY PRN CONSTIPATION (Reported) Omeprazole 20 MG CAPSULE.DR 1 CAP PO DAILY GI (Reported) Polyethylene Glycol 3350 (Miralax) 17 GRAM POWD.PACK 1 PAC PO 1700 GI ( Reported) dissolve in water [POWER CEREAL] 1 UNIT PO QAM SUPPLEMENT (Reported) Protein Supplement (Promod) 946 ML LIQUID 30 ML PO DAILY SUPPLEMENT (Reported ) Quetiapine Fumarate 100 MG TABLET 1 TAB PO QAM UNKNOWN (Reported) Quetiapine Fumarate 25 MG TABLET 1 TAB PO QAM UNKNOWN (Reported) Quetiapine Fumarate 25 MG TABLET 1 TAB PO 1400 UNKNOWN (Reported) Quetiapine Fumarate (Seroquel) 100 MG TABLET 1 TAB PO QHS UNKNOWN (Reported) Saliva Stimulant Agents Comb.3 (Biotene Moisturizing Mouth) 44.3 ML SPRAY 2 SPRAY PO BID DRY MOUTH (Reported) Sennosides/Docusate Sodium (Senna S Tablet) 8.6 MG-50 MG TABLET 1 TAB PO 1700 GI (Reported) Simvastatin (Zocor*) 20 MG TABLET 1 TAB PO QHS CHOLESTEROL (Reported) Spironolactone 25 MG TABLET 12.5 MG PO DAILY DIURETIC (Reported) Tamsulosin HCl (Flomax) 0.4 MG CAP.ER.24H 1 CAP PO DAILY (Reported) Trazodone HCl 150 MG TABLET 0.5 TAB PO QHS UNKNOWN (Reported) Past History Travel History Traveled to [place] past 21 day No Medical History Neurological: Alzheimer's disease, Parkinson's disease, seizure Cardiovascular: DIASTOLIC DYSFUNCTION Renal: UTI DEHYDRATION Psychiatric: anxiety, bipolar disease, psychosis Endocrine: HYPOTHYROID ETHOLOGIST/Reproductive: BPH Surgical History Surgical History: non-contributory Psychosocial History Services at Home: Nursing Smoking Status: Unknown If Ever Smoked Assessment/Plan Consult Acknowledgment - Thank you for your consult request. HENRIK LOCK 03/23/17 0809: Assessment/Plan Consult Acknowledgment - Thank you for your consult request.
[2017-03-23 08:00] VITALS: BP 113/65
--- NOTE | 2017-03-23 08:07 | Cons- CRCU ---
HENRIK LOCK 03/23/17 0807: General Information and HPI Consulting Request Date of Consult: 03/23/17 Requested By: Dr elder Reason for Consult: hypothermia, altered mental status, hypotension Source of Information: W10, LONG-TERM Exam Limitations: unable to give history, not alert/orientated, confusion, poor historian History of Present Illness: This is a 81-year-old gentleman with past medical history of Parkinson's, hypothyroidism, urine and bowel incontinence, bipolar disorder, psychosis, seizure disorder brought into hospital from [facility] with chief complain of hyponatremia and hypotension which occurred on the morning of admission. Per the nursing at the rehabilitation center, a mild baseline patient is alert but confused, and he was complaining some abdominal pain 1 day prior to admission. As per the W10 ,patient was altered,was hypotensive and hypothermic with the lowest temperature being 88. His PCP was called and despite being do not hospitalize he was brought into the hospital. A call was made to patient's brother who is the power of food service counter clerk, and he agreed to taking the patient to the hospital and therefore he was brought in to [facility]. Allergies/Medications Allergies: Coded Allergies: NO KNOWN ALLERGIES (03/22/17) Home Med List: Acetaminophen (Acephen) 650 MG SUPP.RECT 1 SUPP ID Q4H PRN PAIN/TEMP>/100 ( Reported) Acetaminophen 325 MG TABLET 2 TAB PO Q4H PRN PAIN/TEMP>/100 (Reported) Ascorbate Calcium (Vitamin C) 500 MG TABLET 1 TAB PO BID SUPPLEMENT (Reported ) Bisacodyl 10 MG SUPP.RECT 1 SUP RC PRN CONSTIPATION (Reported) Calcium Carbonate (Calcium) 500 MG CALCIUM (1,250 MG) TAB.CHEW 1 TAB PO BID GI (Reported) Carbidopa/Levodopa (Sinemet 25-100 MG Tablet) 25 MG-100 MG TABLET 2 TAB PO TID UNKNOWN (Reported) Chlorhexidine Gluconate (Periogard) 0.12 % MOUTHWASH 15 ML PO BID TEETH & GUMS (Reported) Cranberry Fruit Concentrate (Azo Cranberry) 250 MG TAB.CHEW 2 TAB PO DAILY SUPPLEMENT (Reported) Divalproex Sodium (Depakote) 125 MG TABLET.DR 500 MG PO BID UNKNOWN (Reported ) Divalproex Sodium (Depakote) 125 MG TABLET.DR 625 MG PO 1300 UNKNOWN ( Reported) Docusate Sodium (DOK) 100 MG TABLET 2 TAB PO DAILY GI (Reported) Ergocalciferol (Vitamin D2) (Vitamin D2) 50,000 UNIT CAPSULE 1 CAP PO Q30D SUPPLEMENT (Reported) Finasteride 5 MG TABLET 1 TAB PO 1700 BPH (Reported) Folic Acid 0.8 MG TABLET 1 TAB PO DAILY SUPPLEMENT (Reported) Furosemide (Lasix) 20 MG TABLET 1 TAB PO 4XW DIURETIC (Reported) Furosemide (Lasix) 40 MG TABLET 1 TAB PO Sunday DIURETIC (Reported ) Guaifenesin 100 MG/5 ML LIQUID 10 ML PO Q6H PRN COUGH (Reported) Lactose-Reduced Food (Nutritional Supplement) 237 ML LIQUID 120 ML PO BID SUPPLEMENT (Reported) Levothyroxine Sodium 125 MCG TABLET 1 TAB PO DAILY THYROID (Reported) Lubiprostone (Amitiza) 24 MCG CAPSULE 1 CAP PO BID GI (Reported) Magnesium Hydroxide (Milk Of Magnesia) 400 MG/5 ML ORAL.SUSP 30 ML PO DAILY PRN CONSTIPATION (Reported) Midodrine HCl 5 MG TABLET 1 TAB PO BID UNKNOWN (Reported) Midodrine HCl 2.5 MG TABLET 1 TAB PO BID UNKNOWN (Reported) Multivitamin,Ther and Minerals (Multivitamins With Minerals Hp) 1 EACH CAPSULE 1 CAP PO DAILY SUPPLEMENT (Reported) Na Phos,M-B/Na Phos,Di-Ba (Fleet Enema) 19 GRAM-7 GRAM/118 ML ENEMA 1 E RC DAILY PRN CONSTIPATION (Reported) Omeprazole 20 MG CAPSULE.DR 1 CAP PO DAILY GI (Reported) Polyethylene Glycol 3350 (Miralax) 17 GRAM POWD.PACK 1 PAC PO 1700 GI ( Reported) dissolve in water [POWER CEREAL] 1 UNIT PO QAM SUPPLEMENT (Reported) Protein Supplement (Promod) 946 ML LIQUID 30 ML PO DAILY SUPPLEMENT (Reported ) Quetiapine Fumarate 100 MG TABLET 1 TAB PO QAM UNKNOWN (Reported) Quetiapine Fumarate 25 MG TABLET 1 TAB PO QAM UNKNOWN (Reported) Quetiapine Fumarate 25 MG TABLET 1 TAB PO 1400 UNKNOWN (Reported) Quetiapine Fumarate (Seroquel) 100 MG TABLET 1 TAB PO QHS UNKNOWN (Reported) Saliva Stimulant Agents Comb.3 (Biotene Moisturizing Mouth) 44.3 ML SPRAY 2 SPRAY PO BID DRY MOUTH (Reported) Sennosides/Docusate Sodium (Senna S Tablet) 8.6 MG-50 MG TABLET 1 TAB PO 1700 GI (Reported) Simvastatin (Zocor*) 20 MG TABLET 1 TAB PO QHS CHOLESTEROL (Reported) Spironolactone 25 MG TABLET 12.5 MG PO DAILY DIURETIC (Reported) Tamsulosin HCl (Flomax) 0.4 MG CAP.ER.24H 1 CAP PO DAILY (Reported) Trazodone HCl 150 MG TABLET 0.5 TAB PO QHS UNKNOWN (Reported) Current Medications: Current Medications Sig/Sofie Start time Last Medication Dose Route Stop Time Status Admin Acetaminophen 1,000 MG Q6P PRN 03/22 2330 AC IV Azithromycin 500 MG ONCE ONE 03/22 1600 DC 03/22 Sodium Chloride 250 ML IV 03/22 1659 1647 Ceftazidime 2,000 MG IQ8 03/23 0400 AC 03/23 IV 0350 Ceftazidime 1,000 MG ONCE ONE 03/22 2100 DC 03/22 IV 03/22 2101 2106 Ceftazidime 0 .STK-MED ONE 03/22 205 DC .ROUTE Ceftazidime 1,000 MG IQ8 03/22 2030 DC IV Ceftriaxone Sodium 0 .STK-MED ONE 03/22 1643 DC .ROUTE Ceftriaxone Sodium 1,000 MG ONCE ONE 03/22 1600 DC 08 IV 03/22 1601 1647 Chlorhexidine 15 ML BID 03/22 2200 CAN Gluconate PO Divalproex Sodium 500 MG BID 03/22 2200 CAN PO Divalproex Sodium 625 MG .[1300 DAILY] 03/22 2115 DC PO Finasteride 5 MG 1700 03/23 1700 CAN PO Heparin Sodium 5,000 UNIT Q8 03/23 0600 AC 03/23 (Porcine) SC 0533 Levothyroxine Sodium 62.5 MCG 1000 03/23 1000 AC IV Magnesium Sulfate 1 GM ONCE ONE 03/23 0645 AC 03/23 Dextrose/Water 100 ML IV 03/23 1044 0658 Magnesium Sulfate 1 GM ONCE ONE 03/23 0645 AC Dextrose/Water 100 ML IV 03/23 1044 Methylprednisolone 0 .STK-MED ONE 03/22 2013 DC .ROUTE Methylprednisolone 125 MG ONCE ONE 03/22 2000 DC /08 IV 03/22 Pantoprazole Sodium 0 .STK-MED ONE 03/22 2254 DC IV Pantoprazole Sodium 40 MG DAILY 03/22 2200 AC 06/08 IV 2234 Potassium Chloride 10 MEQ Q1H / 2145 DC 06/08 IV 06/08 2246 2349 Sodium Chloride 1,000 ML Q10H / 2145 AC 06/08 IV 2234 Sodium Chloride 1,000 ML BOLUS ONE 03/22 1600 DC 06/08 IV 06/08 1659 1600 Sodium Chloride 1,000 ML BOLUS ONE / 1600 DC 06/08 IV 06/08 1659 1635 Sodium Chloride 1,000 ML BOLUS ONE / 1600 DC 06/08 IV 06/08 1659 1721 Valproate Sodium 625 MG 1300 06/ 1300 AC Sodium Chloride 100 ML IV Valproate Sodium 500 MG Q12 03/23 0100 AC /09 Sodium Chloride 100 ML IV 0045 Valproate Sodium 500 MG Q12 / 2230 DC Sodium Chloride 100 ML IV Vancomycin HCl 1,000 MG 2100 03/23 2100 CAN IV Vancomycin HCl 1,000 MG 2100 03/23 2100 AC Sodium Chloride 250 ML IV 03/24 2059 Vancomycin HCl 0 .STK-MED ONE 03/22 2058 DC .ROUTE Vancomycin HCl 1,000 MG ONCE ONE 03/22 2030 DC 03/22 Sodium Chloride 250 ML IV 03/22 Review of Systems Review of Systems Constitutional: Reports: see HPI. Denies: chills, diaphoresis, fever, malaise, weakness, unexplained weight loss. EENTM: Denies: blurred vision, double vision, visual changes, eye pain. Cardiovascular: Denies: chest pain, edema, orthopena, palpitations. Respiratory: Denies: cough, hemoptysis, orthopnea, short of breath. GI: Reports: abdominal pain. Denies: bloating, constipation, diarrhea, distention. Genitourinary: Denies: no symptoms. Musculoskeletal: Reports: see HPI. Skin: Reports: see HPI. Neurological/Psychological: Reports: confusion, dementia. Hematologic/Endocrine: Reports: no symptoms. Immunologic/Allergic: Reports: no symptoms. All Other Systems: Reviewed and Negative Past History Travel History Traveled to [place] past 21 day No Medical History Neurological: Alzheimer's disease, Parkinson's disease, seizure Cardiovascular: DIASTOLIC DYSFUNCTION Renal: UTI DEHYDRATION Psychiatric: anxiety, bipolar disease, psychosis Endocrine: HYPOTHYROID ACID CONDITIONER/Reproductive: BPH Surgical History Surgical History: non-contributory Psychosocial History Where Do You Live? Home Who Do You Live With? spouse Services at Home: Nursing Smoking Status: Unknown If Ever Smoked Functional Ability ADLs Needs Assist: dressing, eating, toileting, bathing. Ambulation: wheelchair IADLs Needs Assist: shopping, housework, finances. Employment History Employment: Retired ECHO Results (as available) Date of last Echo 10/02/06 EF% 60 Exam & Diagnostic Data Last 24 Hrs of Vital Signs/I&O Vital Signs Date Time Temp Pulse Resp B/P B/P Pulse O2 O2 Flow FiO2 Mean Ox Delivery Rate 03/23 0000 96.4 91 20 100/64 95 Room Air 06/09 0000 97 Room Air 06/08 2236 95.7 93 18 117/59 95 Room Air Room Air 06/08 2155 95.4 79 18 110/54 96 Room Air Room Air 06/08 2108 95.0 81 18 95/51 95 Room Air Room Air 06/08 2018 94.1 71 18 92/53 96 Room Air Room Air 06/08 1910 93.0 65 18 81/53 95 Room Air Room Air 06/08 1834 92.3 62 18 83/51 96 Room Air Room Air 06/08 1801 91.3 61 18 83/54 95 Room Air Room Air 06/08 1721 91.2 61 18 78/50 95 Room Air Room Air 06/08 1601 90.3 55 18 98/55 96 Room Air Room Air 06/08 1539 90.1 47 18 78/49 94 Room Air 06/08 1436 89.7 48 18 102/64 96 Room Air Room Air 06/08 1341 87.8 52 20 115/71 98 Room Air 06/08 1151 86.3 53 18 141/67 96 Room Air Intake & Output 03/23 1600 09 0800 03/23 0000 Intake Total 826 3500 Output Total 2019 1100 Balance -1194 2400 Intake, IV 826 3500 Output, Urine 2019 1100 Patient 74.843 kg Weight Physical Exam General Appearance: well developed/nourished, not alert, oriented, confused Head: atraumatic, normal appearance Eyes: Bilateral: PERRL, EOMI. Ears, Nose, Throat: normal pharynx, normal ENT inspection Neck: normal inspection, supple Respiratory: b/l crackles Cardiovascular: regular rate/rhythm Peripheral Pulses: 2+ brachial (R), 2+ brachial (L), 2+ radial (R), 2+ radial (L) Gastrointestinal: normal bowel sounds, soft, non-tender Extremities: rash on the legs Neurologic/Psych: confused, garbled speech, unable to perform complete nuero exam as not following commands. Cranial Nerves: couldnot be compeltely examined, no facial droop. Lymphatic: no anterior cervical bereket Last 48 Hrs of Labs/Jose R: Laboratory Tests 03/23/17 0245: Anion Gap 10, Estimated GFR > 60, Glucose 74, Calcium 8.6, Phosphorus 3.3, Magnesium 1.4 L, Total Bilirubin 0.3, AST 27, ALT 24, Albumin 3.1 L, TSH 3.800 , Free T4 1.32, Cortisol AM Sample 11.5, CBC w Diff NO MAN DIFF REQ, RBC 3.73 L , MCV 94.8 H, MCH 31.6 H, RDW 17.6 H, MPV 7.3 L, Gran % 85.3 H, Lymphocytes % 12.6 L, Monocytes % 1.6 L, Eosinophils % 0.4, Basophils % 0.1, Absolute Granulocytes 3.5, Absolute Lymphocytes 0.5 L, Absolute Monocytes 0.1 L, Absolute Eosinophils 0, Absolute Basophils 0, PUBS MCHC 33.4 03/22/17 2214: Troponin I 0.03 03/22/17 1530: Lactic Acid 1.4 03/22/17 1406: Urine Color YEL, Urine Clarity CLEAR, Urine pH 6.0, Ur Specific [place] 1.015, Urine Protein NEG, Urine Ketones NEG, Urine Nitrite NEG, Urine Bilirubin NEG, Urine Urobilinogen 0.2, Ur Leukocyte Esterase NEG, Ur Microscopic EXAM NOT REQUIRED, Urine Hemoglobin NEG, Urine Glucose NEG 03/22/17 1230: Anion Gap 11, Estimated GFR > 60, BUN/Creatinine Ratio 47.8 H, Glucose 88, Lactic Acid 2.7 H, Calcium 9.5, Total Bilirubin 0.4, AST 28, ALT 11 L, Alkaline Phosphatase 74, Troponin I 0.04, Total Protein 6.6, Albumin 3.2 L, Globulin 3.4, Albumin/Globulin Ratio 0.9 L, TSH 8.090 H, Free T4 1.36, Thyroxine (T4) 6.8, CBC w Diff NO MAN DIFF REQ, RBC 3.96 L, MCV 95.3 H, MCH 31.4 H, RDW 17.5 H, MPV 7.4, Gran % 46.5, Lymphocytes % 42.9, Monocytes % 8.4, Eosinophils % 1.6, Basophils % 0.6, Absolute Granulocytes 1.3 L, Absolute Lymphocytes 1.2, Absolute Monocytes 0.2, Absolute Eosinophils 0, Absolute Basophils 0, PUBS MCHC 33.0 03/22/17 1225: Lactic Acid Cancelled, Troponin I Cancelled, TSH Cancelled, Free T4 Cancelled Diagnostic Data EKG Results EKG was notable for RBBB, bradycardia 52, QTC 536, possible first-degree heart block CXR Results IMPRESSION: Bibasilar opacification, consider atelectasis, aspiration, or pneumonia. Assessment/Plan Impression/Plan: This is a 81-year-old gentleman with past medical history of Parkinson's, hypothyroidism, urine and bowel incontinence, bipolar disorder, psychosis, seizure disorder brought into hospital from [facility] with chief complain of hypothermia and hypotension which occurred on the morning of admission. His initial vitals on presentation were notable for severe hypokalemia and hypotension which improved with IV hydration and bear hugger. Labs were significant for white count of 2.8, lactic acid of 2.7, potassium of 3.3, TSH of 8.090. Chest X-ray showed bibasilar opacification, possible aspiration/pneumonia. 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 EKG was notable for a right bundle-branch block, bradycardia 52, QTC of 536 and possible first-degree heart block. Tempreature trend 86.3>>>>>87.8>>>90.1>>>>90.3>>>>92.3>>>>95.0>>>96.4 ( rectal) B/P Trend 78/49>>>92/53>>>>110/54>>>>100/64 Today morning white count improved 2.8>>4.1 Mg low at 1.4, repelted. PRoblem list 1.Hosptial acquired pnumonia with positive severe sepssi criteria. 2.Altered mental status possible 2/2 to infection. 3.hypothyroidism 4. hypomagnesemia 5. hypokalemia - resolved. 6. hypothermia - resovled. 7.History of psychosis, seizure disorder, bipolar Plan Respiratory * No respiratory distress noted. * b/l lungs congested and junky. * 95% saturation on room air. * CXr shows evidence of bibasilar consolidation ? aspiration, as patient sounds very junky and upon exam today was constantly having more sputum production which he was unable to bring out. * Ct to follow sputum Cx * Mr. Tate recieved one time vanco and ceftz for possible HCAP. ID * Came in with white count of 2.8, BP dropped to 78/50, lactic acid positve, positve Sepsis criteria. * Meets Severe sepsis criteria with low tempreature, low white count, hypotension, lactic acidosis and possible source lungs with pnuemonia,however not in septic shock as his BP improved with Volume resuscitation. * Possible HCAP pnuemonia with b/l consolidation. * patient recieved one tiem of vancomycin and ceftazidime for HCAP. * Ct vanco. ceftaz * ct to follow cultures. Cardiology * Average heart rate between 70's and 90's * Stable , no issues. * ct to hold lasix and spironolactone, resume once can take oral. Hematology * H/H stable. * platelet within normal limit. * MCV 94.8 * stable. Metabolic * Hypomagnesemia,replete and monitor daily. * Rest electrolytes within normal limit. * Thyroid function test within normal limit. * Ct IV levothyroxine 62.5 MCG daily. * Ct daily BEP monitoring. Alimentary/GI * NPO * didnot pass swallow, repeat swallow tmrw. * ct npo for now * change NS to D5 half normal while NPO. Nuerology * Altered and confused * Will continue to follow and treat pnuemonia * no focal deficits. * Head CT, no acute findings. * History of psychosis, seizure disorder, bipolar * Hold on oral medications and continue IV valproic acid Diet NPO DVT px Mild modereate severe PP. GOALS OF CARE DISCUSSION WITH BRTHER NEEDED, [facility] WAS A DONOT REHOSPTALIZE,HE IS DNR/DNI AND FURTHER FAMILY DISCUSSION WITH BROTHER ELVIS WILL BE NEEDED, WE TREID CALLING HIM TWICE TODAY,CALL WAS UNANSWERED , WILL CONTINUE TO GET IN TOUCH. Consult Acknowledgment - Thank you for your consult request. Britney PEÑA MDRenetta BOJORQUEZA 03/23/17 0839: Assessment/Plan Other Findings/Comments: I have personally seen and examined the patient and agree with residents above assessment and plan. Briefly, the patient is an 81-year-old male, [facility] resident, with a past medical history significant for Parkinson's, hypothyroidism, urinary and bowel incontinence, seizure disorder, bipolar disease and psychosis. The patient is DNR/DNI and was to not be rehospitalized however that decision was changed yesterday following increased confusion hypotension and severe hypothermia. The patient was evaluated in the emergency department and found to have a chest x-ray demonstrating bilateral consolidations suspicious for HCAP. The patient was placed on an external warming device, pancultured and started on empiric ceftazidime and vancomycin. His blood pressure significantly improved with volume resuscitation. The patient's temperature has significantly improved overnight and is now back to normal. His blood pressure has improved and his urine output is adequate. The patient has garbled speech and cannot offer any complaints. We will continue to empirically treat the patient, follow up culture results, monitor vital signs, please electrolytes and maintain the patient on his home medications. Discussed plan of care with the housestaff and advised him to contact me should the patient's condition change or deteriorate. Once the patient's POA is available we will need to discuss goals of care with him as well. Consult Acknowledgment - Thank you for your consult request.
--- NOTE | 2017-03-23 13:16 | NUR ---
Wound Care Assessment: Patient presents with known areas of skin breakdown that were present on admission. A stage 2 is noted to the coccyx measuring 0.3 X 0.3cm, pale, pink moist wound bed with no s/s of infection noted. An unstageable pressure injury is noted above this pressure injury which measures 0.8 X 0.8cm, with 25% of moist yellow slough and 75% of pink moist tissue noted to the wound bed. Periwounds presents with healed areas of presumed pressure injury. Patient admited from an extended care facility and has been following up with a vocational director- Patient is due to be discharged today since he is a 23 hour observation patient and can continue application of santyl as previously recommended by Rehab cut off man. Impression: Unstageable and stage 2 pressure injuries to the coccyx. Recommendations: Wounds were cleansed with normal saline and patted dry. A hydrocolloid dressing was placed and can be changed every 3 days and prn. Please order a catergory 2 mattress if patient is not discharged back to the F today. NPO at this time for failed swallow eval- please follow further orders and have nutrition consult patient. Frequent turning and repositioning. If patient remains in hospital consider ordering santyl for wound debridement. Please follow all additional pressure injury guidelines.
[2017-03-23 15:54] VITALS: BP 118/68
[2017-03-23 18:47] VITALS: BP 118/58
[2017-03-23 22:15] VITALS: BP 116/66
[2017-03-24 06:00] VITALS: BP 122/64
--- NOTE | 2017-03-24 07:41 | PN- Housestaff ---
See Addendum Subjective Follow-up For: HCAP AMS Electrolyte Abnormalities Subjective: Mr. Tate was seen and examined this morning. He is resting comfortably in bed. Denies any issues. Alert however very somnolent. Unable to really offer any complaints. Continues to have bilateral expiratory rhonchi on auscultation. Denies any fever chills, nausea, vomiting. Review of Systems Constitutional: Reports: see HPI. Objective Last 24 Hrs of Vital Signs/I&O Vital Signs Date Time Temp Pulse Resp B/P B/P Pulse O2 O2 Flow FiO2 Mean Ox Delivery Rate 03/24 0935 Room Air Room Air 03/24 0800 Room Air 03/24 06 98.0 50 14 122/64 93 03/23 2215 98.0 73 18 116/66 92 Room Air 03/23 2000 Room Air 03/23 1847 98.5 64 18 118/58 94 Room Air 03/23 1555 95 Room Air 03/23 1554 97.5 69 20 118/68 95 Room Air 03/23 1343 96 Room Air 03/23 1200 96 Room Air Intake & Output 03/24 1600 03/24 0800 03/24 0000 Intake Total 600 600 Output Total 850 550 Balance -250 50 Intake, IV 600 600 Output, Urine 850 550 Physical Exam General Appearance: Cooperative, Mild Distress Cardiovascular: Normal S1, Normal S2 Lungs: Expiratory Rhonchi Abdomen: Normal Bowel Sounds, Soft, No Tenderness Extremities: No Edema Vascular: Normal Pulses Current Medications: Current Medications Sig/Sofie Start time Last Medication Dose Route Stop Time Status Admin Acetaminophen 1,000 MG Q6P PRN 03/22 2330 AC IV Albuterol Sulfate 3 ML BID 03/24 1000 AC 03/24 INH 0925 Ceftazidime 2,000 MG IQ8 03/23 0400 AC 03/24 IV 0822 Dextrose/Sodium 1,000 ML Q13H 03/23 1300 AC 03/23 Chloride IV 2000 Heparin Sodium 5,000 UNIT Q8 03/23 0600 AC 03/24 (Porcine) SC 0545 Levothyroxine Sodium 62.5 MCG 1000 03/23 1000 AC 03/24 IV 1104 Pantoprazole Sodium 40 MG DAILY 03/22 2200 AC 03/24 IV 1105 Sodium Chloride 1,000 ML Q10H 03/22 2145 DC 03/23 IV 0853 Valproate Sodium 625 MG 1300 03/23 1300 AC 03/23 Sodium Chloride 100 ML IV 1215 Valproate Sodium 500 MG Q12 03/23 0100 AC 03/24 Sodium Chloride 100 ML IV 1108 Vancomycin HCl 1,000 MG 2100 03/23 2100 AC 03/23 Sodium Chloride 250 ML IV 03/24 Last 24 Hrs of Lab/Jose R Results Last 24 Hrs of Labs/Mics: Laboratory Tests 03/24/17 0608: Anion Gap 10, Estimated GFR > 60, BUN/Creatinine Ratio 25.0, CBC w Diff NO MAN DIFF REQ, RBC 3.43 L, MCV 96.2 H, MCH 31.9 H, RDW 18.2 H, MPV 7.8, Gran % 57.1, Lymphocytes % 30.4, Monocytes % 11.7 H, Eosinophils % 0.3, Basophils % 0.5, Absolute Granulocytes 3.0, Absolute Lymphocytes 1.6, Absolute Monocytes 0.6 , Absolute Eosinophils 0, Absolute Basophils 0, PUBS MCHC 33.1 Assessment/Plan Assessment: This is a 81-year-old gentleman with past medical history of Parkinson's, hypothyroidism, urine and bowel incontinence, bipolar disorder, psychosis, seizure disorder brought into hospital from [facility] with chief complain of hypothermia and hypotension which occurred on the morning of admission. His initial vitals on presentation were notable for severe hypokalemia and hypotension which improved with IV hydration and bear hugger. Labs were significant for white count of 2.8, lactic acid of 2.7, potassium of 3.3, TSH of 8.090. Chest X-ray showed bibasilar opacification, possible aspiration/pneumonia. 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 EKG was notable for a right bundle-branch block, bradycardia 52, QTC of 536 and possible first-degree heart block. Tempreature trend 86.3>>>>>87.8>>>90.1>>>>90.3>>>>92.3>>>>95.0>>>96.4 ( rectal) B/P Trend 78/49>>>92/53>>>>110/54>>>>100/64 Today morning white count improved 2.8>>4.1 Mg low at 1.4, repelted. Problem list 1.Hosptial acquired pnumonia with positive severe sepsis criteria. 2.Altered mental status possible 2/2 to infection. 3.hypothyroidism 4. hypomagnesemia 5. hypokalemia - resolved. 6. hypothermia - resovled. 7.History of psychosis, seizure disorder, bipolar Severe Sepsis Due to Pneumonia Came in with white count of 2.8, BP dropped to 78/50, lactic acid positve, positve Sepsis criteria. Meets Severe sepsis criteria with low tempreature, low white count, hypotension, lactic acidosis and possible source lungs with pnuemonia,however not in septic shock as his BP improved with Volume resuscitation. Possible HCAP pnuemonia with b/l consolidation. patient recieved one tiem of vancomycin and ceftazidime for HCAP. Ct vanco. ceftaz ct to follow cultures. History of Hypertension Average heart rate between 70's and 90's Stable , no issues. ct to hold lasix and spironolactone, resume once can take oral. Hematology H/H stable. platelet within normal limit. MCV 94.8 stable. Electrolyte imbalance Hypomagnesemia,replete and monitor daily. Rest electrolytes within normal limit. Thyroid function test within normal limit. Ct IV levothyroxine 62.[address] daily BEP monitoring. Aspitation Risk NPO. Awaiting Swallow Evaluation. did not pass swallow, repeat swallow tmrw. Continue D5 half normal while NPO. Altered Mentation Will continue to follow and treat pnuemonia Head CT, no acute findings. History of psychosis, seizure disorder, bipolar Hold on oral medications and continue IV valproic acid Problem List: 1. Sepsis 2. Hypothermia 3. BPH (benign prostatic hyperplasia) Pain Ratin Pain Location: NA Pain Goal: Remain pain free Pain Plan: Tylenol Tomorrow's Labs & Rationales: CBC: monitor WBC in the setting of infection BEP: monitor elctrolytes Mg NA
[2017-03-24 08:22] LABS: ABSOLUTE BASOPHIL COUNT 0 /CUMM (0.0-0.2); ABSOLUTE EOSINOPHIL COUNT 0 /CUMM (0.0-0.7); ABSOLUTE LYMPH COUNT 1.6 /CUMM (1.2-3.4); ABSOLUTE MONOCYTE COUNT 0.6 /CUMM (0.10-0.60); BASOPHIL % 0.5 % (0.0-2.0); EOSINOPHIL % 0.3 % (0-5); GRANULOCYTE % 57.1 % (42.2-75.2); MEAN CORPUSCULAR HGB 31.9 PG (27.0-31.0); MEAN CORPUSCULAR HGB CONC 33.1 G/DL (33.0-37.0); MEAN CORPUSCULAR VOLUME 96.2 FL (80.0-94.0); MEAN PLATELET VOLUME 7.8 FL (7.4-10.4); PLATELET COUNT 175 /CUMM (130-400); RBC DISTRIBUTION WIDTH 18.2 % (11.5-14.5); RED BLOOD CELL CT 3.43 /CUMM (4.70-6.10); WHITE BLOOD CELL COUNT 5.2 /CUMM (4.8-10.8)
--- NOTE | 2017-03-24 10:19 | PN- Pulmonary ---
Subjective HPI/Critical Care Issues: Patient is awake but noncommunicative. Overall status is improved Objective Current Medications: Current Medications Sig/Sofie Start time Last Medication Dose Route Stop Time Status Admin Acetaminophen 1,000 MG Q6P PRN 03/22 2330 IV Albuterol Sulfate 3 ML BID 03/24 1000 AC 03/24 INH 0925 Ceftazidime 2,000 MG IQ8 03/23 0400 AC 03/24 IV 0822 Dextrose/Sodium 1,000 ML Q13H 03/23 1300 AC 03/23 Chloride IV 2000 Heparin Sodium 5,000 UNIT Q8 03/23 0600 AC 03/24 (Porcine) SC 0545 Levothyroxine Sodium 62.5 MCG 1000 03/23 1000 AC 03/23 IV 0912 Magnesium Sulfate 1 GM ONCE ONE 03/23 645 OH 03/23 Dextrose/Water 100 ML IV 03/23 1044 0658 Magnesium Sulfate 1 GM ONCE ONE 03/23 0645 DC 03/23 Dextrose/Water 100 ML IV 03/23 1044 0853 Pantoprazole Sodium 40 MG DAILY 03/22 2200 AC 03/23 IV 0912 Sodium Chloride 1,000 ML Q10H 03/22 2145 DC 03/23 IV 0853 Valproate Sodium 625 MG 1300 03/23 1300 AC 03/23 Sodium Chloride 100 ML IV 1215 Valproate Sodium 500 MG Q12 03/23 0100 03/23 Sodium Chloride 100 ML IV 2311 Vancomycin HCl 1,000 MG 2100 03/23 2100 AC 03/23 Sodium Chloride 250 ML IV 03/24 Vital Signs & I&O Last 24 Hrs of Vitals and I&O: Vital Signs Date Time Temp Pulse Resp B/P B/P Pulse O2 O2 Flow FiO2 Mean Ox Delivery Rate 03/24 0935 Room Air Room Air 03/24 0800 Room Air 03/24 06 98.0 50 14 122/64 93 03/23 2215 98.0 73 18 116/66 92 Room Air 03/23 2000 Room Air 03/23 1847 98.5 64 18 118/58 94 Room Air 03/23 1555 95 Room Air 03/23 1554 97.5 69 20 118/68 95 Room Air 03/23 1343 96 Room Air 03/23 1200 96 Room Air Intake & Output 03/24 1600 03/24 0800 03/24 0000 Intake Total 600 600 Output Total 850 550 Balance -250 50 Intake, IV 600 600 Output, Urine 850 550 Hemodynamics and body temperature are improved room air oxygen saturation 93% exam of his chest shows diminished breath sounds occasional rhonchi cardiac exam shows regular S1 and S2 without murmurs abdomen soft nontender Impression/Plan Impression/Plan Impression/Plan: 81-year-old gentleman admitted with presumed sepsis from pneumonia currently on antibiotics now with normal blood pressure temperature and white count. Recommendations: Continue current plan of care. If patient is to complete inpatient course of antibiotics will need to convert to full admission. We will discuss with accepting hospitalist
--- NOTE | 2017-03-24 14:00 | NUR ---
TAKEN OFF SIZE CABRERA MATTRESS SECONDARY TO MATTRESS BEING TOO WARM TO TOUCH, ALERTING LOW AIR PRESSURE TOO. NOTIFIED NURSING HEAT PUMP INSTALLER, COMPANY NOTIFIED.
[2017-03-24 15:29] VITALS: BP 120/83
--- NOTE | 2017-03-24 15:29 | Patient Discharge Instructions ---
Discharge Instructions General Discharge Information You were seen/treated for: ALTERED MENTAL STATUS Watch for these problems: Fever, chills, nausea, vomiting, altered mental status. Hypothermia, hyperthermia. Special Instructions: Please follow up with PCP in seven days. Please inform your PCP of this admission to the hospital. Diet Continue normal diet: No Recommended Diet: Regular Activity Full Activity/No Limits: No Activity Self Limited: Yes (As tolerated. ) Acute Coronary Syndrome Inclusion Criteria At DC or during hospital stay patient has or had the following: ACS DIAGNOSIS No Discharge Core Measures Meds if any: Prescribed or Continued at Discharge Meds if any: NOT Prescribed or Continued at Discharge Congestive Heart Failure Inclusion Criteria At DC or during hospital stay patient has or had the following: CHF DIAGNOSIS No Discharge Core Measures Meds if any: Prescribed or Continued at Discharge Meds if any: NOT Prescribed or Continued at Discharge Cerebrovascular accident Inclusion Criteria At DC or during hospital stay patient has or had the following: CVA/TIA Diagnosis No Discharge Core Measures Meds if any: Prescribed or Continued at Discharge Meds if any: NOT Prescribed or Continued at Discharge Venous thromboembolism Inclusion Criteria VTE Diagnosis No VTE Type NONE VTE Confirmed by (Test) NONE Discharge Core Measures - Per Current guidelines, there needs to be overlap - treatment for the first 5 days of Warfarin therapy. - If discharged on Warfarin prior to 5 days of - overlap therapy, the patient will need to be - assessed for post discharge needs including - *Post discharge parental anticoagulation - *Warfarin and/or parental anticoagulation education - *Follow up date to check INR post discharge At least 5 days overlap therapy as Inpatient No Meds if any: Prescribed or Continued at Discharge Note: Overlap Therapy is Warfarin and Anticoagulant Meds if any: NOT Prescribed or Continued at Discharge
[2017-03-24 21:53] VITALS: BP 154/92
[2017-03-25 06:00] VITALS: BP 138/76
--- NOTE | 2017-03-25 08:21 | PN- Housestaff ---
ANDERSON PAYNE,CANDI 03/25/17 0821: Subjective Follow-up For: HCAP AMS Electrolyte Abnormalities Subjective: Patient seen and examined. No events reported overnight per the nursing staff. He remains NPO after failing repeat swallow eval. Patient is nonverbal at baseline and unable to offer any complaints but does not apperat to be in acute disterss. Remains HDS and afebrile. Review of Systems Constitutional: Reports: see HPI. Objective Last 24 Hrs of Vital Signs/I&O Vital Signs Date Time Temp Pulse Resp B/P B/P Pulse O2 O2 Flow FiO2 Mean Ox Delivery Rate 03/25 600 98.0 56 14 138/76 96 03/24 2153 97.3 58 19 154/92 93 03/24 2133 93 Room Air 03/24 1600 Room Air 2.0L 03/24 1529 97.5 51 20 120/83 93 Room Air 03/24 0935 Room Air Room Air Intake & Output 03/25 1600 03/25 0800 03/25 0000 Intake Total 600 600 Output Total 750 650 Balance -150 -50 Intake, IV 600 600 Output, Urine 750 650 Physical Exam General Appearance: Alert, Cooperative, No Acute Distress Other Physical Findings: Cardiovascular: Normal S1, Normal S2 Lungs: Expiratory Rhonchi Abdomen: Normal Bowel Sounds, Soft, No Tenderness Extremities: No Edema Vascular: Normal Pulses Current Medications: Current Medications Sig/Sofie Start time Last Medication Dose Route Stop Time Status Admin Acetaminophen 1,000 MG Q6P PRN 03/22 2330 AC IV Albuterol Sulfate 3 ML BID 03/24 1000 AC 03/24 INH 2129 Ceftazidime 2,000 MG IQ8 03/23 0400 AC 03/25 IV 0024 Dextrose/Sodium 1,000 ML Q13H 03/23 1300 AC 03/25 Chloride IV 0527 Heparin Sodium 5,000 UNIT Q8 03/23 0600 AC 03/25 (Porcine) SC 0527 Levothyroxine Sodium 62.5 MCG 1000 / 1000 AC 03/24 IV 1104 Pantoprazole Sodium 40 MG DAILY 03/22 2200 AC 03/24 IV 1105 Valproate Sodium 625 MG 1300 03/23 1300 AC 03/24 Sodium Chloride 100 ML IV 1400 Valproate Sodium 500 MG Q12 03/23 0100 AC 03/24 Sodium Chloride 100 ML IV 2047 Vancomycin HCl 1,000 MG 2100 03/23 2100 DC 03/23 Sodium Chloride 250 ML IV 03/24 Last 24 Hrs of Lab/Jose R Results Last 24 Hrs of Labs/Mics: Laboratory Tests 03/25/17 0754: Sodium Pending, Potassium Pending, Chloride Pending, Carbon Dioxide Pending, Anion Gap Pending, BUN Pending, Creatinine Pending, BUN/Creatinine Ratio Pending , Magnesium Pending, CBC w Diff Pending, WBC Pending, RBC Pending, Hgb Pending, Hct Pending, MCV Pending, MCH Pending, RDW Pending, Plt Count Pending, MPV Pending, PUBS MCHC Pending Assessment/Plan Assessment: This is a 81-year-old gentleman with past medical history of Parkinson's, hypothyroidism, urine and bowel incontinence, bipolar disorder, psychosis, seizure disorder brought into hospital [facility] with chief complain of hypothermia and hypotension which occurred on the morning of admission. Problem list 1.Hosptial acquired pnumonia with positive severe sepsis criteria. 2.Altered mental status possible 2/2 to infection. 3.hypothyroidism 4. hypomagnesemia 5. hypokalemia - resolved. 6. hypothermia - resovled. 7.History of psychosis, seizure disorder, bipolar # Aspiration pneumonia Came in with white count of 2.8, BP dropped to 78/50, lactic acid positve, positve Sepsis criteria. Met Severe sepsis criteria with low tempreature, low white count, hypotension, lactic acidosis and possible source lungs with pnuemonia,however not in septic shock as his BP improved with volume resuscitation. Possible HCAP pnuemonia with b/l consolidation. Patient recieved one tiem of vancomycin and ceftazidime for HCAP. * Vitals per protocol * WBC daily * Cont vanco. ceftaz * Follow cultures. * Patient failing bedside swallow eval. Keep NPO * Continue D5 half normal while NPO. # History of Hypertension Average heart rate between 70's and 90's, BP stable. * Cont to hold lasix and spironolactone, resume once can take oral. # Electrolyte imbalance Patient presented with hypomagnesemia. Rest of electrolytes within normal limit. Thyroid function test within normal limit. * Ct IV levothyroxine 62.5 MCG daily. * BEP daily, replete as needed # Altered Mentation Head CT, no acute findings. History of psychosis, seizure disorder, bipolar * Continue to follow and treat pnuemonia * Hold on oral medications * Continue IV valproic acid # DNR/ DNI now, NPO, DVT prophylaxis is ALP and SQ heparin, Tylenol IV for pain Problem List: 1. Hypotension (arterial) 2. Sepsis 3. Hypothermia 4. Orthostasis 5. BPH (benign prostatic hyperplasia) 6. UTI (urinary tract infection) 7. Bipolar 1 disorder 8. Hypothyroidism 9. Hypertension 10. Parkinson's disease 11. RECURRENT FALL Pain Ratin Pain Location: 0 Pain Goal: Remain pain free Pain Plan: Mild path Tomorrow's Labs & Rationales: CBC: monitor WBC in the setting of infection BEP: monitor elctrolytes Mg EARL PAYNE,SUNIL 03/25/17 1102: Attending MD Review Statement Attending Statement Attending MD Statement: examined this patient, discuss w/resident/PA/CURATOR [employer]OOLOGICAL MUSEUM, agreed w/resident/PA/CURATOR [employer] MUSE[employer], reviewed EMR data (avail) Attending Assessment/Plan: 81M PMH Parkinson's, hypothyroidism, urinary and bowel incontinence, bipolar, psychosis, seizure disorder brought in from [facility] for sepsis secondary to pneumonia with hypotension, hypothermia, leukopenia. Temp was 89 on admission, has improved to 97 today. Patient is lethargic. He will awaken but does not communicate. On exam he has bilateral rhonchi. He does not appear dehydrated or toxic. Cultures thus far have been negative. WBC improving. Plan - Continue on general medicine - Continue Vancomycin and Ceftazidime - Repeat sputum culture as it was never sent - NPO due to high aspiration risk - Elevate head of bed - Protonix 40mg IV daily - Speech therapy consult for swallow evaluation - Monitor cultures - Follow pulmonary recommendations - Continue IV hydration - DVT PPx - Goals of care discussion tomorrow with GWENDOLYN ELLIOTT MD,SUNIL 03/25/17 1102: Attending MD Review Statement Attending Statement Attending MD Statement: examined this patient, discuss w/resident/PA/CURATOR [employer]USEUM, agreed w/resident/PA/CURATOR [employer] MUSEUM, reviewed EMR data (avail) Attending Assessment/Plan: 81M PMH Parkinson's, hypothyroidism, urinary and bowel incontinence, bipolar, psychosis, seizure disorder brought in from [facility] for sepsis secondary to pneumonia with hypotension, hypothermia, leukopenia. Temp was 89 on admission, has improved to 97 today. Patient is lethargic. He will awaken but does not communicate. On exam he has bilateral rhonchi. He does not appear dehydrated or toxic. Cultures thus far have been negative. WBC improving. Plan - Continue on general medicine - Continue Vancomycin and Ceftazidime - Repeat sputum culture as it was never sent - NPO due to high aspiration risk - Elevate head of bed - Protonix 40mg IV daily - Speech therapy consult for swallow evaluation - Monitor cultures - Follow pulmonary recommendations - Continue IV hydration - DVT PPx - Goals of care discussion tomorrow with POKim
--- NOTE | 2017-03-25 09:41 | NUR ---
PT AT RISK FOR FALLS BUT REFUSING APPLICATION OF FALL RISK BRACELET. RN ATTEMPTED TO APPLY BRACELET X2 THIS AM BUT PT REFUSED BOTH TIMES. BED ALARM IN PLACE. FALL RISK SIGN TO DOOR. NO ATTEMPTS TO GET OOB. SAFETY MAINTAINED. WILL CONT TO MONITOR.
[2017-03-25 09:46] LABS: ABSOLUTE BASOPHIL COUNT 0 /CUMM (0.0-0.2); ABSOLUTE EOSINOPHIL COUNT 0 /CUMM (0.0-0.7); ABSOLUTE GRANULOCYTE CT 3.8 /CUMM (1.4-6.5); ABSOLUTE LYMPH COUNT 1.7 /CUMM (1.2-3.4); ABSOLUTE MONOCYTE COUNT 0.6 /CUMM (0.10-0.60); BASOPHIL % 0.3 % (0.0-2.0); EOSINOPHIL % 0.8 % (0-5); GRANULOCYTE % 60.8 % (42.2-75.2); HEMATOCRIT 34.2 % (42-52); MEAN CORPUSCULAR HGB 31.6 PG (27.0-31.0); MEAN CORPUSCULAR VOLUME 95.6 FL (80.0-94.0); MEAN PLATELET VOLUME 7.6 FL (7.4-10.4); PLATELET COUNT 164 /CUMM (130-400); RBC DISTRIBUTION WIDTH 18.2 % (11.5-14.5); RED BLOOD CELL CT 3.57 /CUMM (4.70-6.10); WHITE BLOOD CELL COUNT 6.2 /CUMM (4.8-10.8)
--- NOTE | 2017-03-25 10:28 | PN- Pulmonary ---
Subjective HPI/Critical Care Issues: Patient is awake alert comfortable on room air. His required nasotracheal suctioning for copious purulent sputum. Objective Current Medications: Current Medications Sig/Sofie Start time Last Medication Dose Route Stop Time Status Admin Acetaminophen 1,000 MG Q6P PRN 03/22 2330 AC IV Albuterol Sulfate 3 ML BID 03/24 1000 AC 03/25 INH 1014 Ceftazidime 2,000 MG IQ8 03/23 0400 AC 03/25 IV 0910 Dextrose/Sodium 1,000 ML Q13H 03/23 1300 AC 03/25 Chloride IV 0527 Heparin Sodium 5,000 UNIT Q8 03/23 0600 AC 03/25 (Porcine) SC 0527 Levothyroxine Sodium 62.5 MCG 1000 03/23 1000 AC 03/24 IV 1104 Pantoprazole Sodium 40 MG DAILY 03/22 2200 AC 03/25 IV 0910 Valproate Sodium 625 MG 1300 03/23 1300 AC 03/24 Sodium Chloride 100 ML IV 1400 Valproate Sodium 500 MG Q12 03/23 0100 AC 03/24 Sodium Chloride 100 ML IV 2047 Vancomycin HCl 1,000 MG 2100 03/23 2100 DC 03/23 Sodium Chloride 250 ML IV 03/24 Vital Signs & I&O Last 24 Hrs of Vitals and I&O: Vital Signs Date Time Temp Pulse Resp B/P B/P Pulse O2 O2 Flow FiO2 Mean Ox Delivery Rate 03/25 1017 94 Room Air Room Air 03/25 0800 Room Air 03/25 06 98.0 56 14 138/76 96 03/24 2153 97.3 58 19 154/92 93 03/24 2133 93 Room Air 03/24 1600 Room Air 2.0L 03/24 1529 97.5 51 20 120/83 93 Room Air Intake & Output 03/25 1600 03/25 0800 03/25 0000 Intake Total 600 600 Output Total 750 650 Balance -150 -50 Intake, IV 600 600 Output, Urine 750 650 Room air oxygen saturation 94% blood pressure and temperatures have been stable exam of his chest shows occasional rhonchi cardiac exam shows regular S1 and S2 without murmurs Impression/Plan Impression/Plan Impression/Plan: 81-year-old gentleman admitted with presumed sepsis from pneumonia currently on antibiotics now with normal blood pressure temperature and white count. Recommendations: Continue current plan of care. If patient is to complete inpatient course of antibiotics will need to convert to full admission. We will discuss with accepting hospitalist. Obtain sputum C&S with suctioning.
--- NOTE | 2017-03-25 13:00 | NUR ---
LATE ENTRY: PT HAS BEEN ALERT ALL DAY. NO LETHARGY PRESENT. PT'S FAMILY INQUIRING ABOUT THE PAST SWALLOW EVALULATIONS PERFORMED. PT'S FAMILY UPDATED THAT PT HAS HAD FAILED REPORTEDLY 3 SWALLOW EVALUATIONS THUS FAR. PT'S FAMILY FEELS THAT PT IS NOW MORE ALERT AND MAY POSSIBLY BE ABLE TO PASS A SWALLOW EVALUATION AT THIS TIME. DR. BARRON CONTACTED. SNO. PT AND FAMILY UPDATED. WILL CONT TO MONITOR.
[2017-03-25 16:00] VITALS: BP 170/84
--- NOTE | 2017-03-25 16:15 | Event Note ---
Event Note Event Note: Discussed over the phone with POA Mr. Martell Tate, who is the patient's brother. He was made aware that patient has failed swallow eval multiple times and because his oral meds have been held his BP has been going up since the admission. He stated that, if necessary, he would like us to pursue tube feeding in order for the patient to receive his medications. However, he would not like to pursue any more aggressive measures. For now the IVF rate is being decreased to 50 cc/hr. We will continue to monitor his BP and if SBP goes above 180, we may consider NGT placement. Nursing staff has been asked to check his BP again in 2 hours.
--- NOTE | 2017-03-25 16:19 | NUR ---
AT 1600 PT 170/84. HR 56. PT RESTING IN BED, IN NO APPARENT DISTRESS. MD CHRISTOPHER NOTIFIED OF BP. PT IS NPO DUE TO FAILING SWALLOW EVALUATION. ORAL ANTIHYPERTENSIVE MEDS UNABLE TO BE GIVEN DUE TO RISK OF ASPIRATION. ORDER FOR NGT PLACED. PER MD CHRISTOPHER, DECREASE FLUIDS TO 50 ML/HR AND RECHECK THE BP WITHIN TWO HOURS. IF BP REMAINS ELEVATED NGT WILL BE PLACED TO ADMINISTER ANTIHYPERTENSIVE MEDS.
--- NOTE | 2017-03-25 18:47 | NUR ---
BP RECHECKED AT 1830. BP 170/88. PER MD CHRISTOPHER, TO CONTINUE TO MONITOR BP AND NOTIFY IF IT CONTINUES TO RISE.
[2017-03-25 22:52] VITALS: BP 160/84
--- NOTE | 2017-03-26 06:49 | PN- Housestaff ---
JERAMY PAYNE,[facility] 03/26/17 0648: Subjective Follow-up For: HCAP AMS Subjective: Mr. Tate was seen and examined morning. He is resting comfortably in bed. He is alert and appears more oriented compared to our previous interaction. Patient is asking for his hearing aids. He denies any symptoms and is unable to elicit whether is any fever, chills, nausea, vomiting. Continues to be nothing by mouth. Review of Systems Constitutional: Reports: see HPI. Objective Last 24 Hrs of Vital Signs/I&O Vital Signs Date Time Temp Pulse Resp B/P B/P Pulse O2 O2 Flow FiO2 Mean Ox Delivery Rate 03/26 0808 97.6 58 20 156/78 96 Room Air 03/26 0712 97.1 48 18 162/90 93 03/25 2252 97.8 56 18 160/84 97 Room Air 03/25 2149 92 Room Air Room Air 03/25 1600 96.0 56 18 170/84 97 03/25 1017 94 Room Air Room Air Intake & Output 03/26 1600 03/26 0800 03/26 0000 Intake Total 400 400 Output Total 750 950 Balance -350 -550 Intake, IV 400 400 Intake, Oral 0 Number 0 Bowel Movements Output, Urine 750 950 Physical Exam General Appearance: Alert, Cooperative Skin: Ulcers and injuries present on admission. 1) Stage 2 ulcer, noted on coccyx. Appriximate measurement 0.3 X 0.3 cm. 2) Unsteageable pressure injury to coccyx, measurement 0.8 cm X 0.8 cm. Cardiovascular: Normal S1, Normal S2 Lungs: Expiratory Rhonchi Abdomen: Normal Bowel Sounds, Soft, No Tenderness Neurological: Sensation Intact Extremities: Edema 2+ Vascular: Normal Pulses Current Medications: Current Medications Sig/Sofie Start time Last Medication Dose Route Stop Time Status Admin Acetaminophen 1,000 MG Q6P PRN 03/22 2330 AC IV Albuterol Sulfate 3 ML BID 03/24 1000 AC 03/25 INH 2148 Ceftazidime 2,000 MG IQ8 03/23 0400 AC 03/26 IV 0045 Dextrose/Sodium 1,000 ML Q20H 03/25 1645 AC 03/26 Chloride IV 0338 Dextrose/Sodium 1,000 ML Q13H 03/23 1300 DC 03/25 Chloride IV 0527 Heparin Sodium 5,000 UNIT Q8 03/23 0600 AC 03/26 (Porcine) SC 0527 Levothyroxine Sodium 62.5 MCG 1000 03/23 1000 AC 03/25 IV 1200 Pantoprazole Sodium 40 MG DAILY 03/22 2200 AC 03/25 IV 0910 Valproate Sodium 625 MG 1300 03/23 1300 AC 03/25 Sodium Chloride 100 ML IV 1452 Valproate Sodium 500 MG Q12 03/23 0100 AC 03/25 Sodium Chloride 100 ML IV 2136 Last 24 Hrs of Lab/Jose R Results Last 24 Hrs of Labs/Mics: Laboratory Tests 03/26/17611: Sodium Pending, Potassium Pending, Chloride Pending, Carbon Dioxide Pending, Anion Gap Pending, BUN Pending, Creatinine Pending, BUN/Creatinine Ratio Pending , Magnesium Pending, CBC w Diff Pending, WBC Pending, RBC Pending, Hgb Pending, Hct Pending, MCV Pending, MCH Pending, RDW Pending, Plt Count Pending, MPV Pending, PUBS MCHC Pending Microbiology 03/25 1211 LOWER RESP: Respiratory Culture - COLB 03/25 1211 LOWER RESP: Gram Stain - COLB Assessment/Plan Assessment: This is a 81-year-old gentleman with past medical history of Parkinson's, hypothyroidism, urine and bowel incontinence, bipolar disorder, psychosis, seizure disorder brought into hospital from [facility] with chief complain of hypothermia and hypotension which occurred on the morning of admission. Problem list 1.Healthcare acquired pnumonia with positive sepsis criteria. 2.Altered mental status possible 2/2 to infection. 3.hypothyroidism 4. hypomagnesemia 5. hypokalemia - resolved. 6. hypothermia - resovled. 7.History of psychosis, seizure disorder, bipolar #Healthcare associated pneumonia. Came in with white count of 2.8, BP dropped to 78/50, lactic acid positve, positve Sepsis criteria. Met Severe sepsis criteria with low tempreature, low white count, hypotension, lactic acidosis and possible source lungs with pnuemonia,however not in septic shock as his BP improved with volume resuscitation. Possible HCAP pnuemonia with b/l consolidation. Patient recieved one time of vancomycin and ceftazidime for HCAP. * Vitals per protocol * Cont Ceftazidime, 2000 mg 1Q8. * Follow cultures. * Continue D5 half normal at 50cc/hr. # History of Hypertension * Continue home medications, Lasix and Spironolactone. * If patient is able to tolerate PO food intake, d/c fluids # Electrolyte imbalance Patient presented with hypomagnesemia. Rest of electrolytes within normal limit. Thyroid function test within normal limit. #History of Hypothyroidism * Continue IV levothyroxine 62.5 MCG daily, convert to PO labs in AM. # Altered Mentation Head CT, no acute findings. History of psychosis, seizure disorder, bipolar * Continue to follow and treat pnuemonia * Hold on oral medications, can convert to PO medications in continues to tolerate diet. * Continue IV valproic acid # Diet Pured and thin liquids. Patient past formal swallow evaluation this morning and his diet was advanced accordingly. DVT prophylaxis is ALPS and SQ heparin, Tylenol IV for pain # DNR/ DNI Problem List: 1. Parkinson's disease Pain Ratin Pain Location: No Pain elicited Pain Goal: Remain pain free Pain Plan: Tylenol Tomorrow's Labs & Rationales: No labs needed SUNIL ELLIOTT MD 03/26/17 1343: Attending MD Review Statement Attending Statement Attending MD Statement: examined this patient, discuss w/resident/PA/OFFSET PLATE PREPARATION SUPERVISOR, agreed w/resident/PA/OFFSET PLATE PREPARATION SUPERVISOR, reviewed EMR data (avail) Attending Assessment/Plan: 81M PMH Parkinson's, hypothyroidism, urinary and bowel incontinence, bipolar, psychosis, seizure disorder brought in from ECF for sepsis secondary to pneumonia with hypotension, hypothermia, leukopenia. Temp was 89 on admission, has improved to 97 today. Mental status is improved today. He is answering basic questions and asking for his hearing aid. He was evaluated by speech therapy and was able to tolerate solids and liquids. See speech therapy note for full details. Plan - Continue on general medicine - Continue Ceftazidime. Will switch to PO antibiotics tomorrow - Start diet per speech therapy recommendations - Elevate head of bed - Protonix 40mg IV daily - Monitor cultures - Follow pulmonary recommendations - Continue IV hydration - DVT PPx - Anticipated discharge back to ECF tomorrow.
[2017-03-26 07:12] VITALS: BP 162/90
[2017-03-26 08:08] VITALS: BP 156/78
[2017-03-26 08:35] LABS: ABSOLUTE BASOPHIL COUNT 0 /CUMM (0.0-0.2); ABSOLUTE EOSINOPHIL COUNT 0.1 /CUMM (0.0-0.7); ABSOLUTE GRANULOCYTE CT 2.5 /CUMM (1.4-6.5); ABSOLUTE LYMPH COUNT 2.1 /CUMM (1.2-3.4); ABSOLUTE MONOCYTE COUNT 0.5 /CUMM (0.10-0.60); BASOPHIL % 0.5 % (0.0-2.0); EOSINOPHIL % 2.4 % (0-5); GRANULOCYTE % 47.6 % (42.2-75.2); HEMATOCRIT 35.3 % (42-52); MEAN CORPUSCULAR HGB 31.3 PG (27.0-31.0); MEAN CORPUSCULAR HGB CONC 32.5 G/DL (33.0-37.0); MEAN CORPUSCULAR VOLUME 96.3 FL (80.0-94.0); MEAN PLATELET VOLUME 7.5 FL (7.4-10.4); PLATELET COUNT 173 /CUMM (130-400); RBC DISTRIBUTION WIDTH 18.3 % (11.5-14.5); RED BLOOD CELL CT 3.66 /CUMM (4.70-6.10); WHITE BLOOD CELL COUNT 5.3 /CUMM (4.8-10.8)
--- NOTE | 2017-03-26 13:44 | NUR ---
NURSING NOTE: BILAT HEARING AIDS BROUGHT IN BY DAUGHTER, PLACED ON PT AT THIS TIME.
--- NOTE | 2017-03-26 15:00 | NUR ---
NURSING SHIFT NOTE: PT AWAKE, ALERT, CONFUSED, SPEECH GARBLED AT TIMES, CLEAR AT TIMES, RN PRIOR AUTHORIZATION CLAUDETTE AWARE, MENTAL STATUS "IMPROVED TREMENDOUSLY" PER DAUGHTER LISA. PT PASSED SWALLOW EVAL TODAY; TOLERATED LUNCH, HEARING AIDS IN PLACE. PT ON SIZEWISE MATTRESS; DUODERM TO COCCYX IN PLACE, BARGER TO GRAVITY, BED ALARM IN REACH, DENIES PAIN, NEEDS IN REACH, SAFETY MAINTAINED.
[2017-03-26 15:35] VITALS: BP 144/80
[2017-03-26 22:05] VITALS: BP 138/82
--- NOTE | 2017-03-27 00:30 | NUR ---
ALERT. ON ROOM AIR. DENIES SHORTBESS OF BREATH. LUNGS CLEAR. GARBLED SPEECH VITAL SIGNS STABLE. DENIES CHEST PAIN. + PULSES. DENIES NUMBNESS/TINGLING STERI STRIPS TO R ELBOW. DUODERM TO COCCYX. TURNED AND REPOSITIONED BARGER CARE GIVEN. NO DISCOMFORT/DISTRESS NOTED. SEIZURE PRECAUSTIONS IN PLACE PATIENT RESTING AT THIS TIME
[2017-03-27 06:20] VITALS: BP 118/70
--- NOTE | 2017-03-27 06:30 | PN- Housestaff ---
See Addendum Subjective Follow-up For: HCAP AMS Subjective: Mr. Celeste was seen and examined this morning. Resting comfortably in bed. Patient states that he feels better. He is alert. He has no complaints. He states multiple times and he would like his dentures inserted. Denies any fever , chills, nausea, vomiting. Denies any pain at the moment. Review of Systems Constitutional: Reports: see HPI. Objective Last 24 Hrs of Vital Signs/I&O Vital Signs Date Time Temp Pulse Resp B/P B/P Pulse O2 O2 Flow FiO2 Mean Ox Delivery Rate 03/27 0000 Room Air 03/26 2205 97.8 60 20 138/82 92 Room Air 03/26 1915 97 Room Air Room Air 03/26 1535 97.6 61 18 144/80 94 Room Air 03/26 1045 91 Room Air Room Air 03/26 0808 97.6 58 20 156/78 96 Room Air 03/26 0712 97.1 48 18 162/90 93 Intake & Output 03/27 0800 03/27 0000 03/26 1600 Intake Total 500 950 Output Total 900 800 Balance -400 150 Intake, IV 400 400 Intake, Oral 100 550 Number 0 Bowel Movements Output, Urine 900 800 Physical Exam General Appearance: Alert, Oriented X3, Cooperative Skin: Ulcers and injuries present on admission.1) Stage 2 ulcer, noted on coccyx , Approximate measurement 0.3 X 0.3 cm. 2) Unsteageable pressure injust tococcyx , measurement 0.8cm X 0.8cm. Cardiovascular: Regular Rate, Normal S1, Normal S2 Lungs: Expiratory Rhonchi Bilaterally Abdomen: Normal Bowel Sounds, Soft, No Tenderness Neurological: Normal Speech Extremities: Edema 1+, non pitting Vascular: Normal Pulses Current Medications: Current Medications Sig/Sofie Start time Last Medication Dose Route Stop Time Status Admin Acetaminophen 1,000 MG Q6P PRN 03/22 2330 AC IV Albuterol Sulfate 3 ML BID 03/24 1000 AC 03/26 INH 1915 Bisacodyl 5 MG DAILY NEEDED PRN 03/26 0830 AC PO Bisacodyl 10 MG ONCE PRN 03/26 0830 DC 03/26 OH 03/26 1430 1133 Ceftazidime 2,000 MG IQ8 03/23 0400 AC 03/27 IV 0149 Dextrose/Sodium 1,000 ML Q20H 03/25 1645 AC 03/27 Chloride IV 0149 Furosemide 20 MG QSUN 04/01 0700 AC PO Furosemide 20 MG SAT 03/27 1000 AC PO Furosemide 40 MG 03/26 1645 AC 03/26 PO 1803 Heparin Sodium 5,000 UNIT Q8 03/23 0600 AC 03/27 (Porcine) SC 0525 Levothyroxine Sodium 62.5 MCG 1000 03/27 1000 AC IV Levothyroxine Sodium 62.5 MCG 0600 03/27 0600 DC IV Levothyroxine Sodium 62.5 MCG 1000 03/23 1000 DC 03/26 IV 0901 Pantoprazole Sodium 40 MG DAILY 03/22 2200 AC 03/26 IV 0827 Spironolactone 25 MG DAILY 03/26 1645 AC 03/26 PO 1803 Valproate Sodium 625 MG 1300 03/23 1300 AC 03/26 Sodium Chloride 100 ML IV 1254 Valproate Sodium 500 MG Q12 03/23 0100 AC 03/26 Sodium Chloride 100 ML IV 2253 Last 24 Hrs of Lab/Jose R Results Last 24 Hrs of Labs/Mics: Microbiology 03/26 1442 LOWER RESP: Respiratory Culture - COLB 03/26 1442 LOWER RESP: Gram Stain - COLB Assessment/Plan Assessment: This is a 81-year-old gentleman with past medical history of Parkinson's, hypothyroidism, urine and bowel incontinence, bipolar disorder, psychosis, seizure disorder brought into hospital from [facility] with chief complain of hypothermia and hypotension which occurred on the morning of admission. Problem list 1.Healthcare acquired pnumonia with positive sepsis criteria. 2.Altered mental status possible 2/2 to infection. 3.hypothyroidism 4. hypomagnesemia 5. hypokalemia - resolved. 6. hypothermia - resovled. 7.History of psychosis, seizure disorder, bipolar #Healthcare associated pneumonia. Came in with white count of 2.8, BP dropped to 78/50, lactic acid positve, positve Sepsis criteria. Met Severe sepsis criteria with low tempreature, low white count, hypotension, lactic acidosis and possible source lungs with pnuemonia,however not in septic shock as his BP improved with volume resuscitation. Possible HCAP pnuemonia with b/l consolidation. Patient recieved one time of vancomycin and ceftazidime for HCAP. * Vitals per protocol * Cont Ceftazidime, 2000 mg 1Q8--> may convert to PO Ciproflixacin for an additional 7 days of coverage. * Follow cultures. * Continue D5 half normal at 50cc/hr. # History of Hypertension * Continue home medications, Lasix and Spironolactone. * If patient is able to tolerate PO food intake, d/c fluids # Electrolyte imbalance Patient presented with hypomagnesemia. Rest of electrolytes within normal limit. Thyroid function test within normal limit. #History of Hypothyroidism * Continue IV levothyroxine 62.5 MCG daily, convert to PO meds if able to awallow medication. # Altered Mentation Head CT, no acute findings. History of psychosis, seizure disorder, bipolar * Continue to follow and treat pnuemonia * Hold on oral medications, can convert to PO medications in continues to tolerate diet without any complications. * Continue IV valproic acid # Diet Pured and thin liquids, this will likley be changed again today, after it was reported that the patient was coughing with Thin liquids. Advanced to Puree and Honey thick liquids. DVT prophylaxis is ALPS and SQ heparin, Tylenol IV for pain # DNR/ DNI Problem List: 1. Hypotension (arterial) 2. Sepsis 3. Hypothermia Pain Ratin Pain Location: No Pain Pain Goal: Remain pain free Pain Plan: NA Tomorrow's Labs & Rationales: No Labs
--- NOTE | 2017-03-27 08:47 | NUR ---
NURSING NOTE: PT NOTED TO BE COUGHING MORE WITH THIN LIQUIDS FOR BREAKFAST; THIN LIQUIDS REMOVED FROM TRAY, PT ASSISTED WITH FEEDING. SHUTTLE INSPECTOR MICHAELIF CALLED AND MADE AWARE, SPEECH CALLED AND MADE AWARE AND TO COME F/U SWALLOW EVAL. NEEDS IN REACH.
--- NOTE | 2017-03-27 12:02 | NUR ---
NURSING NOTE: PT LEFT FLOOR VIA STRETCHER WITH DISTIRBUTION FOR MODIFIED BARIUM SWALLOW, PT MADE NPO AFTER BREAKFAST THIS AM, A/FORGETFUL, ROOM AIR, DENIES PAIN, IVF PER MD ORDER, TICKET TO [facility] COMPLETE, CHART SENT WITH PT.
--- NOTE | 2017-03-27 13:03 | NUR ---
NURSING NOTE: PT BACK TO FLOOR VIA STRETCHER WITH DISTRIBUTION FROM MODIFIED BARIUM SWALLOW. SETTLED INTO BED, DENIES COMPLAINTS,BED ALARM IN PLACE
--- NOTE | 2017-03-27 13:21 | RADIOLOGY REPORT ---
EXAMINATION: XR MODIFIED BARIUM SWALLOW CLINICAL INFORMATION: Coughing with thin liquids. COMPARISON: None. TECHNIQUE: Fluoroscopic assistance was provided during a modified barium swallow performed in coordination with the speech pathology service. FLUOROSCOPY TIME: 1 minute, 15 seconds NUMBER OF SAVED IMAGES: 15 FINDINGS: The modified barium swallow examination was performed in cooperation with the speech pathologist using dynamic fluoroscopic imaging in a lateral projection. The patient's swallowing function was observed during administration of apple sauce puree, honey, nectar and thin barium contrast. Prior to triggering of swallows, there was spillage of applesauce puree from the oral cavity into the vallecula. There was spillage to the level of the pyriform sinuses with intake of honey, nectar and thin barium contrast and mild contrast retention was noted. An episode of tracheal penetration with cough reflux was observed after intake of thin barium contrast. IMPRESSION: There was pre-deglutition spillage of contrast material into the valleculae and pyriform sinuses. An episode of tracheal aspiration with cough reflex was observed. Please refer to the speech pathology assessment and recommendations.
--- NOTE | 2017-03-27 14:10 | NUR ---
NURSING SHIFT NOTE: PT REMAINS AWAKE, A/FORGETFUL, BED ALARM IN PLACE, ROOM AIR, PUREE/HONEY DIET ORDERED AFTER MODIFIED BARIUM SWALLOW. PT UPDATED BUT STATES "I DID GOOD ON MY TEST." REEDUCATED ABOUT NEED FOR PUREE/HONEY LIQS. PT HAD SOFT BM TODAY; DUODERM REPLACED TO 2 SMALL OPEN AREAS ON COCCYX, PT REMAINS ON SIZEWISE MATTRESS. DENTURES IN PLACE, BILAT HEARING AIDES IN CASE IN BEDSIDE TABLE AT THIS TIME, PT DIFFICULT IV STICK; PER WILLIAM Painter PEDIATRIC SOCIAL WORKER EXTEND IV FOR ANOTHER 24 HRS, PROBABLE DC TOMORROW PER SLURRY MIXER. IV REMAINS PATENT, IVF PER MD ORDER, NO REDNESS OR EDEMA NOTED, +BLOOD RETURN. SAFETY MAINTAINED, NEEDS IN REACH.
[2017-03-27 14:42] VITALS: BP 134/78
[2017-03-27 21:44] VITALS: BP 134/90
[2017-03-28 05:55] VITALS: BP 122/86
--- NOTE | 2017-03-28 06:21 | PN- Housestaff ---
Subjective Follow-up For: HCAP Subjective: Mr. Tate was seen and examined this morning. He is resting comfortably in bed. He is alert. and oriented.Able to have a conversation. He states is currently comfortable. Denies any fever, chills, nausea, vomiting. Review of Systems Constitutional: Reports: see HPI. Objective Last 24 Hrs of Vital Signs/I&O Vital Signs Date Time Temp Pulse Resp B/P B/P Pulse O2 O2 Flow FiO2 Mean Ox Delivery Rate 03/28 0831 95 Room Air 03/28 0555 98.2 53 22 122/86 93 03/27 2144 97.2 56 19 134/90 95 03/27 1948 95 Room Air 03/27 1442 97.6 54 20 134/78 96 Room Air 03/27 1103 95 Room Air Intake & Output 03/28 1600 03/28 0800 03/28 0000 Intake Total 680 880 Output Total 400 Balance 280 880 Intake, IV 440 400 Intake, Oral 240 480 Number 0 Bowel Movements Output, Urine 400 Physical Exam General Appearance: Alert, Oriented X3, Cooperative Cardiovascular: Regular Rate, Normal S1, Normal S2 Lungs: Normal Air Movement, Limited Lung exam. Increased Breath Sounds Bilaterally. Abdomen: Normal Bowel Sounds, Soft, No Tenderness Neurological: Normal Speech Extremities: Edema, non pitting Vascular: Normal Pulses Current Medications: Current Medications Sig/Sofie Start time Last Medication Dose Route Stop Time Status Admin Acetaminophen 1,000 MG Q6P PRN 03/22 2330 AC IV Albuterol Sulfate 3 ML BID 03/24 1000 AC 03/28 INH 0819 Bisacodyl 5 MG DAILY NEEDED PRN 03/26 0830 AC PO Ceftazidime 2,000 MG IQ8 03/23 0400 DC 03/28 IV 0106 Ciprofloxacin 500 MG Q12 03/28 1000 AC PO 04/01 0959 Dextrose/Sodium 1,000 ML Q20H 03/25 1645 DC 03/28 Chloride IV 0106 Furosemide 20 MG QSUN 04/01 0700 AC PO Furosemide 20 MG SAT 03/27 1000 AC 03/27 PO 0833 Furosemide 40 MG 03/26 1645 AC 03/26 PO 1803 Heparin Sodium 5,000 UNIT Q8 03/23 0600 AC 03/28 (Porcine) SC 0522 Levothyroxine Sodium 62.5 MCG 1000 03/27 1000 AC 03/27 IV 1057 Pantoprazole Sodium 40 MG DAILY 03/22 2200 DC 03/27 IV 0833 Spironolactone 25 MG DAILY 03/26 1645 AC 03/27 PO 0833 Valproate Sodium 625 MG 1300 03/23 1300 AC 03/27 Sodium Chloride 100 ML IV 1305 Valproate Sodium 500 MG Q12 03/23 0100 AC 03/27 Sodium Chloride 100 ML IV 2210 Assessment/Plan Assessment: This is a 81-year-old gentleman with past medical history of Parkinson's, hypothyroidism, urine and bowel incontinence, bipolar disorder, psychosis, seizure disorder brought into hospital from [facility] with chief complain of hypothermia and hypotension which occurred on the morning of admission. Problem list 1.Healthcare acquired pnumonia with positive sepsis criteria. 2.Altered mental status possible 2/2 to infection. 3.hypothyroidism 4. hypomagnesemia 5. hypokalemia - resolved. 6. hypothermia - resovled. 7.History of psychosis, seizure disorder, bipolar #Healthcare associated pneumonia. Came in with white count of 2.8, BP dropped to 78/50, lactic acid positve, positve Sepsis criteria. Met Severe sepsis criteria with low tempreature, low white count, hypotension, lactic acidosis and possible source lungs with pnuemonia,however not in septic shock as his BP improved with volume resuscitation. Possible HCAP pnuemonia with b/l consolidation. Patient recieved one time of vancomycin and ceftazidime for HCAP. * Vitals per protocol * Cont Ceftazidime, 2000 mg 1Q8--> may convert to PO Ciproflixacin for an additional 6 days of coverage. # History of Hypertension * Continue home medications, Lasix and Spironolactone. * If patient is able to tolerate PO food intake, d/c fluids # Electrolyte imbalance Patient presented with hypomagnesemia. Rest of electrolytes within normal limit. Thyroid function test within normal limit. #History of Hypothyroidism * Continue IV levothyroxine 62.5 MCG daily, convert to PO meds if able to awallow medication. # Altered Mentation Head CT, no acute findings. History of psychosis, seizure disorder, bipolar * Continue to follow and treat pnuemonia * Hold on oral medications, can convert to PO medications in continues to tolerate diet without any complications. * Continue IV valproic acid # Diet Pured and thin liquids, this will likley be changed again today, after it was reported that the patient was coughing with Thin liquids. Advanced to Puree and Honey thick liquids. #Disposition I had a lengthy discussion with the Patients Martell SNOW who was concerned that his brother may not be stable enough to transfer back to the [facility]. I mentioned to him that from a medical perspective the patient was clear. He was concerned that the patient would not be able to eat or drink. I assured him that after a swallow evaluation and an MBS, the patient was able to tolerate a Pureed and Honey thick liquid diet. It was also mentioned that this patient has a living will (submitted on PCI), and although has not formally signed a do not hospitalize order, the patient and his brother still would be interested in hospitalization in the future if warranted, however, no heroic mesures, artificial life support or intubation is desired. DVT prophylaxis is ALPS and SQ heparin, Tylenol IV for pain # DNR/ DNI Problem List: 1. Hypotension (arterial) 2. Sepsis Pain Ratin Pain Location: NA Pain Goal: Remain pain free Pain Plan: Tylenol Tomorrow's Labs & Rationales: No Labs
[2017-03-28] MEDS ORDERED: CIPRO500 M1 PO (12:38)
--- NOTE | 2017-03-28 14:22 | Discharge Summary ---
Visit Information Visit Dates Admission Date: 03/24/17 Discharge Date: 03/28/17 Hospital Course Course Attending Physician: SUNIL ELLIOTT MD Primary Care Physician: CHECO HAYS MD Consulting Request: Consulting Specialty: Critical Care Consulting Physician: GREGG PEÑA MD Reason for Consult: Severe hypothermia Hospital Course: Mr. Tate is an 81-year-old gentleman with a past medical history of Parkinson's disease, hypothyroidism, urinary and bowel incontinence, bipolar disorder, psychosis, and seizure disorde who was brought into the hospital from an extended care facility ([facility]) with chief complaint of hypothermia and hypotension which occurred on the morning of admission. He was brought to the ER after being fornd to be more confused, and hypotensive for on the day of admission. As per the W10 from the intermediate, his lowest temperature was 88F. His PCP was called and confirmed that he was a "do not hospitalize" status. However, a call was made to patient's brother who is his power of energy attorney, and he instructed the extended care facility to take the patient to [facility]. His vital signs on presentation showed temperature 86.3 Fahrenheit, pulse of 53 bpm, respiratory rate of 18, blood pressure of 141/67 mmHg. Physical exam showed an elderly man, awake, alert, confused, speech was garbled. He had dry mucous membranes, no lymphadenopathy. Chest exam revealed bibasilar crackles. Cardiovascular exam showed normal S1,S2, regular. Abdominal exam was soft, nontender abdomen. Extremities showed trace edema. He had a pressure ulcer to his coccyx and skin tear to right elbow. His labs were significant for hypokalemia with potassium of 3.3, white count of 2.8/CUMM, lactic acid of 2.7, and TSH of 8.090. Chest X-ray showed bibasilar opacification, possible aspiration/pneumonia. 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 EKG was notable for a right bundle-branch block, bradycardia 52, QTC of 536 and possible first-degree heart block. He was initially placed in the [facility] as an observation status. However, he was soon admitted fully into the hospital on account of sepsis secondary to healthcare associated pneumonia. Detailed discussions with the patient's POA were held and it was agreed that the patient's advanced directives stated that he had a CODE STATUS of DNR/I with no aggressive mearsures including pressors or central line or feeding tubes. He was treated with a bear hugger and his hypothermia improved. He was also resuscitated with IV normal saline and his blood pressure stabilized. In addition he had sputum cultures and blood cultures sent. He was treated with IV ceftazidime and IV vancomycin for healthcare associated pneumonia. However he also had dysphagia and symptoms suggestive of aspiration while on admission. He failed a bedside swallow evaluation and after a modified barium swallow he was placed on puree consistency diet with honey thick liquids. He tolerated his diet well on admission. His blood and urine cultures grew no organism while on admission. Sputum cultures could not be collected as he no cough up and an adequate sample could not be collected by suctioning. He improved on this antibiotic therapy and his temperature remained stable on admission. His antibiotics were switched to by mouth Ciprofloxacin and he was discharged back to the longterm facility. Allergies: Coded Allergies: NO KNOWN ALLERGIES (03/22/17) Disposition Summary Disposition Principal Diagnosis: 1. Sepsis 2. Aspiration pneumonia 3. Hypotension 4. Dysphagia 5. Altered mental status Additional Diagnosis: 6. History of hypertension 7. Hypomagnesemia 8. Hypothyroidism 10. History of psychosis 11. History of seizure disorder Discharge Disposition: SNF Discharge Instructions General Discharge Information Code Status: Do Not Resucitate/Intubat Patient's Diet: Puree consistency diet with honey thick liquids Patient's Activity: Self-limited activity Follow-Up Instructions/Appts: 1. Please follow up with PCP in seven days. Medications at Discharge Discharge Medications: Stop taking the following medications: Quetiapine Fumarate (Quetiapine Fumarate) 100 MG TABLET ORAL Every Morning Qty = 60 Quetiapine Fumarate (Quetiapine Fumarate) 25 MG TABLET ORAL Every Morning Qty = 30 Midodrine HCl (Midodrine HCl) 5 MG TABLET ORAL TWICE DAILY Midodrine HCl (Midodrine HCl) 2.5 MG TABLET ORAL TWICE DAILY Quetiapine Fumarate (Quetiapine Fumarate) 25 MG TABLET ORAL 1400 Quetiapine Fumarate (Seroquel) 100 MG TABLET ORAL TAKE AT BEDTIME Ascorbate Calcium (Vitamin C) 500 MG TABLET ORAL TWICE DAILY Continue taking these medications: [POWER CEREAL] 1 Unit ORAL Every Morning Lactose-Reduced Food (Nutritional Supplement) 237 ML LIQUID 120 Milliliters ORAL TWICE DAILY Omeprazole (Omeprazole) 20 MG CAPSULE. 1 Capsule ORAL DAILY Qty = 30 Levothyroxine Sodium (Levothyroxine Sodium) 125 MCG TABLET 1 Tablet ORAL DAILY Qty = 14 Furosemide (Lasix) 20 MG TABLET 1 Tablet ORAL SEE INSTRUCTIONS Instructions: E, , SUN,SUN Furosemide (Lasix) 40 MG TABLET 1 Tablet ORAL SUNDAY, SUNDAY AND SUNDAY Carbidopa/Levodopa (Sinemet 25-100 MG Tablet) 25 MG-100 MG TABLET 2 Tablet ORAL THREE TIMES DAILY Docusate Sodium (DOK) 100 MG TABLET 2 Tablet ORAL DAILY Multivitamin,Ther and Minerals (Multivitamins With Minerals Hp) 1 EACH CAPSULE 1 Capsule ORAL DAILY Cranberry Fruit Concentrate (Azo Cranberry) 250 MG TAB.CHEW 2 Tablet ORAL DAILY Ergocalciferol (Vitamin D2) (Vitamin D2) 50,000 UNIT CAPSULE 1 Capsule ORAL ONCE A MONTH Folic Acid (Folic Acid) 0.8 MG TABLET 1 Tablet ORAL DAILY Spironolactone (Spironolactone) 25 MG TABLET 12.5 Milligram ORAL DAILY Saliva Stimulant Agents Comb.3 (Biotene Moisturizing Mouth) 44.3 ML SPRAY 2 [place] ORAL TWICE DAILY Chlorhexidine Gluconate (Periogard) 0.12 % MOUTHWASH 15 Milliliters ORAL TWICE DAILY Calcium Carbonate (Calcium) 500 MG CALCIUM (1,250 MG) TAB.CHEW 1 Tablet ORAL TWICE DAILY Lubiprostone (Amitiza) 24 MCG CAPSULE 1 Capsule ORAL TWICE DAILY Divalproex Sodium (Depakote) 125 MG TABLET. 500 Milligram ORAL TWICE DAILY Divalproex Sodium (Depakote) 125 MG TABLET. 625 Milligram ORAL 1300 Tamsulosin HCl (Flomax) 0.4 MG CAP.ER.24H 1 Capsule ORAL DAILY Sennosides/Docusate Sodium (Senna S Tablet) 8.6 MG-50 MG TABLET 1 Tablet ORAL 5 PM Polyethylene Glycol 3350 (Miralax) 17 GRAM POWD.PACK 1 Packet ORAL 5 PM Instructions: dissolve in water Finasteride (Finasteride) 5 MG TABLET 1 Tablet ORAL 5 PM Simvastatin (Zocor*) 20 MG TABLET 1 Tablet ORAL TAKE AT BEDTIME Trazodone HCl (Trazodone HCl) 150 MG TABLET 0.5 Tablet ORAL TAKE AT BEDTIME Protein Supplement (Promod) 946 ML LIQUID 30 Milliliters ORAL DAILY Acetaminophen (Acephen) 650 MG SUPP.RECT 1 SUPPOSITORY RECTALLY Q4H as needed for PAIN/TEMP>/100 Acetaminophen (Acetaminophen) 325 MG TABLET 2 Tablet ORAL Q4H as needed for PAIN/TEMP>/100 Na Phos,M-B/Na Phos,Di-Ba (Fleet Enema) 19 GRAM-7 GRAM/118 ML ENEMA 1 Enema RECTAL DAILY as needed for CONSTIPATION Bisacodyl (Bisacodyl) 10 MG SUPP.RECT 1 Suppository RECTAL as needed for CONSTIPATION Magnesium Hydroxide (Milk Of Magnesia) 400 MG/5 ML ORAL.SUSP 30 Milliliters ORAL DAILY as needed for CONSTIPATION Guaifenesin (Guaifenesin) 100 MG/5 ML LIQUID 10 Milliliters ORAL Q6H as needed for COUGH Start taking the following new medications: Ciprofloxacin HCl (Cipro) 500 MG TABLET 500 Milligram ORAL EVERY 12 HOURS Qty = 13 No Refills Copies To: SUNIL ELLIOTT MD; CASEY PAYNE,Denise ESCOBEDO; SAÚL PAYNE,CHECO Copies To: SUNIL ELLIOTT MD; SAÚL PAYNE,CHECO
[2017-03-28 14:32] VITALS: BP 118/84
--- NOTE | 2017-03-28 14:39 | NUR ---
NURSING NOTE: REPORT GIVEN TO [facility]; TOP DENTURES IN PLACE. PT STATES "I DONT HAVE BOTTOM ONES." BILAT HEARING AIDS IN CONTAINER LABELED WITH HIS NAME ON BEDSIDE TABLE, TO GO WITH PT TO ECF, PT REFUSING TO HAVE HEAING AIDS PLACED AT THIS TIME, PT YELLING "I CAN HEAR FINE" WILL GIVE REPORT TO NEXT SHIFT RN. PAPERWORK IN PROGRESS.
[2017-03-28 14:55] VITALS: BP 118/84
--- NOTE | 2017-03-28 16:53 | NUR ---
1629 ALERT AND ORIENTED X 3. ON ROOM AIR. DENIES SHORTNESS OF BREATH VITAL SIGNS STABLE. DENIES CHEST PAIN. + PULSES. DENIES NUMBNESS/TINGLING DUODERM TO COCCYX. STERI STRIPS TO R ELBOW. PATIENT DRESSED. VERBALIZED UNDERSTANDING OF DISCHARGE PLAN PATIENT LEFT WITH DENTURES AND HEARING AIDS
== END 2017-03-28 16:28 | DRG 871 ==
LOC: ERH 11:50 → CRI 19:54 → ERHI 19:54 → ENRESERV 21:53 → ENTRNSPT 22:24 → CRI 23:29 → CMPTRNSPT 23:53 → CRI 03-23 07:56 → 2NB 03-23 18:32 → ENPENDDIS 03-28 13:15 → 2NB 03-28 16:28
PROVIDERS: Emergency Medicine; Internal Medicine; Student in an Organized Health Care Education/Training Program; ADMIT Student in an Organized Health Care Education/Training Program
DX: A41.9 Sepsis, unspecified organism (principal); J69.0 Pneumonitis due to inhalation of food and vomit; L89.152 Pressure ulcer of sacral region, stage 2; E87.2 Acidosis; I95.9 Hypotension, unspecified; E86.0 Dehydration; R65.20 Severe sepsis without septic shock; G20 Parkinson's disease; G30.9 Alzheimer's disease, unspecified; F02.80 Dementia in other diseases classified elsewhere, unspecified severity, without behavioral disturbance, psychotic disturbance, mood disturbance, and anxiety; G40.909 Epilepsy, unspecified, not intractable, without status epilepticus; E83.42 Hypomagnesemia; E03.9 Hypothyroidism, unspecified; R68.0 Hypothermia, not associated with low environmental temperature; F31.9 Bipolar disorder, unspecified; Z66 Do not resuscitate; E87.6 Hypokalemia; N40.0 Benign prostatic hyperplasia without lower urinary tract symptoms
CPT/HCPCS: 2NBSP; 36415; 74230; 81003; 82436; 87040; 87070; 87086; 92610-GN; 93005; 93010; 96374; 96375; 99291; G8996-GN; G8997-GN; J0456; J0696; J0713; J1644; J2930; J3370; J7040; J7042